=== PATIENT | female | born 1985 | race Two or more races ===

== ENCOUNTER 2016-07-30 14:12 | Emergency (ER) | payer OTHER ==
[~2016-07-30] VITALS: Ht 167.6 cm; Wt 59.0 kg
[~2016-07-30 14:12] MED LIST: BACTRIM DS TAB1 EAC1 ORAL; COLACE100 MG PO; FERROUS SULFAT325 MG ORAL; IBUPROFEN600 MG ORAL; IRON159 MG PO; MACROBID100 MG ORAL; MIDOL220 MG PO; NAPROSYN375 M1 ORAL; PERCOCET 5-3251 EACH PO; PROMETHAZI6.25 MG/1 ORAL; UNOBMED
[2016-07-30] MEDS ORDERED: IBUPROFEN600 MG ORAL (15:03)
[2016-07-30 15:15] VITALS: BP 108/71
--- NOTE | 2016-07-30 16:33 | Emergency Room Report ---
History of Present Illness General Chief Complaint: Lower Extremity Injury Source: Patient Present Illness HPI The patient is a 30-year-old female presenting with left big toe pain which occurred yesterday after the patient dropped a leaf blender onto the foot. The patient describes the pain as a 9/10 sharp sensation and radiates to the ankle. Patient states that she is unable to bear weight on the foot. The patient denies prior injury to the toe. Patient denies any numbness or tingling. The patient has not tried any medications. Allergies: Coded Allergies: AMOXICILLIN (Verified Allergy, Mild, Itching, 08/13/12) Patient History Past Medical History: see triage record Pertinent Family History: none Last Menstrual Period: 06/28/16 Reviewed Nursing Documentation: PMH: Agreed, PSxH: Agreed Nursing Documentation-PMH Past Medical History: No History, Except For Review of Systems All Other Systems: negative except mentioned in HPI Physical Exam Vital Signs Date Time Temp Pulse Resp B/P Pulse Ox O2 Delivery O2 Flow Rate FiO2 07/30/16 14:22 98 20 105/72 98 Room Air Sp02 EP Interpretation: reviewed, normal General Appearance: no apparent distress, alert, GCS 15, non-toxic Head: normocephalic, atraumatic Eyes: bilateral eye PERRL, bilateral eye normal inspection Musculoskeletal: back normal, gait/station normal, normal range of motion, tender - TTP over L 1st IPJ Neurologic: alert, oriented x3, responsive, motor strength/tone normal, sensory intact, normal gait, speech normal Psychiatric: judgement/insight normal, memory normal, mood/affect normal, no suicidal/homicidal ideation Skin: normal turgor, other - echymosis over L first IPJ Lymphatic: no adenopathy Procedures Splinting Splinting : Consent: Verbal Location: L 1st toe Pre-Made Type: tape Pre-Proc Neuro Vasc Exam: normal Post-Proc Neuro Vasc Exam: normal Patient Tolerated: Well Complications: None Medical Decision Making PA Attestation Dr. Bowen is my supervising physician. Patient management was discussed with my supervising physician Diagnostic Impression: Primary Impression: Toe contusion ER Course The patient is a 30-year-old female presenting with left big toe pain Ddx considered include but not limited to sprain/strain, fracture, contusion, subungual hematoma Physical exam: No apparent distress. Left foot: There is ecchymosis and tenderness to palpation over the first IP joint. Full active range of motion. Skin is intact. The nail is unaffected. No subungual hematoma X-ray of the foot is unremarkable The patient is given Motrin for pain Sergei tape was applied to the first and second toes. The patient is given rice instructions and will be discharged home. ER precautions are given Other X-Ray Diagnostic Results Other X-Ray Diagnostic Results : X-Ray Ordered: L foot Date: Jul 30, 2016 EP Interpretation: Yes Findings: no fractures, no dislocation, no soft tissue swelling Number of Views: 3 PA Scribe Text I am acting as scribe for my supervising physician. My supervising physician's interpretation of the L foot xrays are there are no fractures, dislocations or soft tissue swelling. Last Vital Signs Date Time Temp Pulse Resp B/P Pulse Ox O2 Delivery O2 Flow Rate FiO2 07/30/16 15:15 76 20 108/71 98 Room Air Status: improved Disposition: HOME, SELF-CARE Condition: Improved Scripts Ibuprofen* (MOTRIN*) 600 Mg Tablet 600 MG ORAL Q8H Y for For Pain, #30 TAB 0 Refills Prov: GILMER DOBSON 07/30/16 Patient Instructions: Foot Contusion Additional Instructions: I discussed my findings with the patient. All questions and concerns have been answered. Treatment and medication compliance have been addressed. I advised the patient that they need to follow up with PMD in 3-5 days. Return to ED if pain remains or worsens, numbness or tingling occurs, new rash is noticed, fever is noticed, or if needed for any reason. Patient verbalized understanding of discharge instructions. GILMER DOBSON Jul 30, 2016 16:33
--- NOTE | 2016-07-30 17:07 | Diagnostic Imaging Report ---
Indication: PAIN Technique: 3 views left foot Comparison: none Findings: No acute fractures. No dislocations. Joint spaces are preserved. Impression: Negative
== END 2016-07-30 15:21 | disposition home or self-care (01) ==
LOC: EMR 14:55
DX: S90.112A Contusion of left great toe without damage to nail, initial encounter (principal); W20.8XXA Other cause of strike by thrown, projected or falling object, initial encounter; Y92.9 Unspecified place or not applicable; Z88.0 Allergy status to penicillin
CPT/HCPCS: 81025; 99283

== ENCOUNTER 2017-01-12 19:36 | Emergency (ER) | payer OTHER ==
[~2017-01-12] VITALS: Ht 167.6 cm; Wt 54.4 kg
[2017-01-12] MEDS ORDERED: NKM (20:06)
[2017-01-12] MEDS ORDERED: BACTRIM DS TAB1 EAC1 ORAL (20:22)
[2017-01-12] MEDS ORDERED: CLINDAMYCIN HC150 MG ORAL (20:22)
[2017-01-12] MEDS ORDERED: BACTROBAN CR1 APPLIC TOPIC (20:22)
[2017-01-12 20:30] VITALS: BP 95/57
--- NOTE | 2017-01-12 20:59 | Emergency Room Report ---
History of Present Illness General Chief Complaint: Skin Rash/Abscess Source: Patient Present Illness HPI Patient's presents emergency department today complaining of rash on the nose. Patient states that she has a nose pimple it progressively became worse. And she also has a rash on her scalp. She's never had this before she's had for a couple days. She denies any fever nausea vomiting or chills.No other modifying factors. No other associated signs and symptoms. No other complaints were noted. Allergies: Coded Allergies: AMOXICILLIN (Verified Allergy, Mild, Itching, 01/12/17) Patient History Past Medical History: none Past Surgical History: none Pertinent Family History: none Social History: Denies: alcohol use, drug use, smoking Last Menstrual Period: december 2016 Reviewed Nursing Documentation: PMH: Agreed, PSxH: Agreed Nursing Documentation-PM Past Medical History: No History, Except For Review of Systems All Other Systems: negative except mentioned in HPI Physical Exam Vital Signs Date Time Temp Pulse Resp B/P Pulse Ox O2 Delivery O2 Flow Rate FiO2 01/12/17 20:03 98.4 71 16 95/57 98 Room Air Sp02 EP Interpretation: reviewed, normal General Appearance: normal inspection, well appearing, no apparent distress, alert Head: atraumatic, other - scalp small area of cellulitis Eyes: bilateral eye normal inspection ENT: normal ENT inspection, hearing grossly normal, normal voice Neck: normal inspection, full range of motion, supple, no bony tend Respiratory: normal inspection, lungs clear, normal breath sounds, no respiratory distress, no retraction, no wheezing Cardiovascular #1: regular rate, rhythm, no edema Gastrointestinal: normal inspection, normal bowel sounds, non tender, soft, no guarding, no hernia Genitourinary: no CVA tenderness Musculoskeletal: normal inspection, back normal, normal range of motion Neurologic: normal inspection, alert, responsive, speech normal Psychiatric: normal inspection, judgement/insight normal, mood/affect normal Skin: rash - Nose, redness, Pimple Medical Decision Making Diagnostic Impression: Primary Impression: Cellulitis Additional Impression: Acne ER Course Patient presents emergency department today complaining of the spot on the nose. Patient also has evidence of cellulitis of scalp. Differential considerations include abscess, cellulitis, MRSA infection. Given patient's presentation I felt that this likely is a Acne infection and possible MRSA. Patient was given oral antibiotics prescription and topical antibiotics. Recommend close followup.Patient is advised to follow up with primary doctor in 2-3 days and return the emergency room for any worsening symptoms and as needed. Last Vital Signs Date Time Temp Pulse Resp B/P Pulse Ox O2 Delivery O2 Flow Rate FiO2 01/12/17 20:30 98.4 16 95/57 98 Room Air 01/12/17 20:03 71 Status: improved Disposition: HOME, SELF-CARE Condition: Stable Scripts Mupirocin Calcium (Bactroban) 15 Gm Cream..g. 1 APPLIC TOPIC THREE TIMES A DAY for 10 Days, GM Prov: BECCA HEBERT M.D. 01/12/17 Trimethoprim/Sulfamethoxazole 160/800* (BACTRIM DS TABLET*) 1 Each Tablet 1 TAB ORAL Q12H, #14 TAB 0 Refills Prov: BECCA HEBERT M.D. 01/12/17 Clindamycin Hcl* (CLINDAMYCIN HCL*) 150 Mg Capsule 150 MG ORAL FOUR TIMES A DAY for 7 Days, CAP Prov: BECCA HEBERT M.D. 01/12/17 Referrals: [facility] ([facility]P) Patient Instructions: Cellulitis, Acne BECCA HEBERT M.D. Jan 12, 2017 20:59
== END 2017-01-12 20:30 | disposition home or self-care (01) ==
LOC: EMR 20:18
DX: J34.0 Abscess, furuncle and carbuncle of nose (principal); L70.9 Acne, unspecified; Z88.0 Allergy status to penicillin
CPT/HCPCS: 99284

== ENCOUNTER 2017-04-22 17:43 | Emergency (ER) | payer OTHER ==
[~2017-04-22] VITALS: Ht 160 cm; Wt 59.0 kg
[~2017-04-22 17:43] MED LIST changes: +BACTROBAN CR1 APPLIC TOPIC; +CLINDAMYCIN HC150 MG ORAL; +NKM
[2017-04-22] MEDS ORDERED: Methocarbamol 750mg tab ORAL ONE (18:15)
[2017-04-22] MEDS ORDERED: Ketorolac 60mg Inj IM ONE (18:15)
[2017-04-22 18:30] VITALS: BP 123/85
[2017-04-22] MEDS ORDERED: Morphine Sulfate 4mg/ml Inj IM ONE (19:15)
[2017-04-22] MEDS ORDERED: IBUPROFEN600 MG ORAL (19:46)
[2017-04-22] MEDS ORDERED: TRAMADOL HCL50 MG ORAL (19:46)
[2017-04-22 19:59] VITALS: BP 123/85
--- NOTE | 2017-04-23 12:43 | Emergency Room Report ---
History of Present Illness General Chief Complaint: Pain Source: Patient, Medical Record Present Illness HPI The patient is a 31-year-old female presenting for upper back pain and neck pain for the past 3 days. She denies any known reason for the pain and denies any injury or over use. Is described as a 9/10 dull ache and does not radiate. Worse with shoulder movement and neck movement. Better with rest. No radiating pain. She has tried motrin and tylenol. Allergies: Coded Allergies: AMOXICILLIN (Verified Allergy, Mild, Itching, 01/12/17) Patient History Past Medical History: see triage record Pertinent Family History: none Last Menstrual Period: 03/16/17 Reviewed Nursing Documentation: PMH: Agreed, PSxH: Agreed Nursing Documentation-PMH Past Medical History: No History, Except For Review of Systems All Other Systems: negative except mentioned in HPI Physical Exam Vital Signs Date Time Temp Pulse Resp B/P (MAP) Pulse Ox O2 Delivery O2 Flow Rate FiO2 04/22/17 17:55 98.2 65 18 116/74 99 Room Air Sp02 EP Interpretation: reviewed, normal General Appearance: no apparent distress, alert, GCS 15, non-toxic Head: normocephalic, atraumatic Eyes: bilateral eye normal inspection, bilateral eye PERRL ENT: hearing grossly normal, normal pharynx, no angioedema, normal voice, uvula midline Neck: supple, no bony tend, tender lateral - bilat, tender - bilat trapezius Respiratory: chest non-tender, lungs clear, normal breath sounds, speaking full sentences Cardiovascular #1: regular rate, rhythm, no edema Musculoskeletal: back normal, gait/station normal, normal range of motion, non- tender Neurologic: alert, oriented x3, responsive, motor strength/tone normal, sensory intact, speech normal Psychiatric: judgement/insight normal, memory normal, mood/affect normal, no suicidal/homicidal ideation Skin: normal color, no rash, warm/dry, well hydrated Medical Decision Making PA Attestation Dr. Bowen is my supervising physician. Patient management was discussed with my supervising physician Diagnostic Impression: Primary Impression: Muscle strain ER Course The patient is a 31-year-old female presenting for upper back pain and neck pain for the past 3 days. Differential diagnoses considered but not limited to: Cervical strain, disc herniation, fracture, muscle spasm, among others PE: Vitals WNL. NAD Neck is soft and supple. TTP over bilat cervical paraspinal muscles and bilat trapezii. Full AROM of neck and shoulders. The patient is given pain medication in the emergency department and feels significantly better. Pain has decreased She'll be discharged home with prescription for pain medication and needs to follow up with her primary doctor Last Vital Signs Date Time Temp Pulse Resp B/P (MAP) Pulse Ox O2 Delivery O2 Flow Rate FiO2 04/22/17 19:59 98.3 78 16 123/85 100 Room Air Status: improved Disposition: HOME, SELF-CARE Condition: Improved Scripts Ibuprofen* (MOTRIN*) 600 Mg Tablet 600 MG ORAL Q8H Y for For Pain, #30 TAB 0 Refills Prov: GILMER DOBSON 04/22/17 Tramadol Hcl* (ULTRAM*) 50 Mg Tablet 50 MG ORAL Q6H Y for For Pain, #10 TAB 0 Refills Prov: GILMER DOBSON 04/22/17 Patient Instructions: Muscle Strain Additional Instructions: I discussed my findings with the patient. All questions and concerns have been answered. Treatment and medication compliance have been addressed. I advised the patient that they need to follow up with PMD in 3-5 days. Return to ED if pain remains or worsens, numbness or tingling occurs, new rash is noticed, fever is noticed, or if needed for any reason. Patient verbalized understanding of discharge instructions. GILMER DOBSON Apr 23, 2017 12:43
== END 2017-04-22 19:59 | disposition home or self-care (01) ==
LOC: EMR 18:58
DX: S29.012A Strain of muscle and tendon of back wall of thorax, initial encounter (principal); X58.XXXA Exposure to other specified factors, initial encounter; Y92.89 Other specified places as the place of occurrence of the external cause; Z88.0 Allergy status to penicillin
CPT/HCPCS: 96372; 99284; J2270

== ENCOUNTER 2017-06-03 14:42 | Emergency (ER) | payer OTHER ==
[~2017-06-03] VITALS: Ht 165.1 cm; Wt 57.2 kg
[~2017-06-03 14:42] MED LIST changes: +TRAMADOL HCL50 MG ORAL
[2017-06-03] MEDS ORDERED: TIVICAY50 MG ORAL (15:32)
[2017-06-03] MEDS ORDERED: TRUVADA 200 MG1 EAC1 ORAL (15:32)
--- NOTE | 2017-06-03 15:33 | Emergency Room Report ---
History of Present Illness General Chief Complaint: General Complaint Source: Patient Present Illness HPI 31 y/o female c/o needle stick to left pinky finger at 12:15pm today. 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 States her finger did have blood coming from it. Patient provided initial wound cleaning at office and is here for post exposure prophylaxis. Patient denies hx of HIV or Hepatitis. Denies any other complications. Denies Hep B vaccination. Allergies: Coded Allergies: AMOXICILLIN (Verified Allergy, Unknown, 06/03/17) Patient History Past Medical History: see triage record Past Surgical History: none Pertinent Family History: none Reviewed Nursing Documentation: PMH: Agreed, PSxH: Agreed Nursing Documentation-PMH Past Medical History: No Stated History Hx Hypertension: No - ANEMIA Review of Systems All Other Systems: negative except mentioned in HPI Physical Exam Vital Signs Date Time Temp Pulse Resp B/P (MAP) Pulse Ox O2 Delivery O2 Flow Rate FiO2 06/03/17 14:46 97.7 72 20 99/71 97 Room Air Sp02 EP Interpretation: reviewed, normal General Appearance: no apparent distress, alert, GCS 15, non-toxic Head: normocephalic, atraumatic Eyes: bilateral eye normal inspection, bilateral eye PERRL ENT: normal pharynx, no angioedema, normal voice Respiratory: chest non-tender, lungs clear, normal breath sounds, speaking full sentences Cardiovascular #1: regular rate, rhythm, no edema Musculoskeletal: digits/nails normal, gait/station normal, normal range of motion Neurologic: alert, oriented x3, responsive, motor strength/tone normal, sensory intact, speech normal Psychiatric: judgement/insight normal, memory normal, no suicidal/homicidal ideation, anxious Skin: normal color, no rash, warm/dry, well hydrated, laceration Medical Decision Making PA Attestation Dr. Bowen my supervising physician with whom patient management has been discussed with. Diagnostic Impression: Primary Impression: Needle stick injury with contaminated needle Qualified Codes: W46.1XXA - Contact with contaminated hypodermic needle, initial encounter Additional Impression: HIV exposure from body fluids ER Course Pt. presents to the ED c/o needle stick Ddx considered but are not limited to puncture wound, laceration, HIV, Hepatitis Vital signs: are WNL, pt. is afebrile H&PE are most consistent with Needle stick injury with possible exposure to blood born pathogen ORDERS: HIV, Hepatitis Panel ED INTERVENTIONS: none required at this time. DISCHARGE: At this time pt. is stable for d/c to home. Will provide printed patient care instructions, and any necessary prescriptions. Care plan and follow up instructions have been discussed with the patient prior to discharge. Last Vital Signs Date Time Temp Pulse Resp B/P (MAP) Pulse Ox O2 Delivery O2 Flow Rate FiO2 06/03/17 14:46 97.7 72 20 99/71 97 Room Air Disposition: HOME, SELF-CARE Condition: Stable Scripts Dolutegravir Sodium (Tivicay) 50 Mg Tablet 50 MG ORAL DAILY, #30 TAB Prov: JESUS MANUEL SCHERER.A. 06/03/17 Emtricitabine/Tenofovir 200-300MG* (TRUVADA 200-300MG*) 1 Each Tablet 1 TAB ORAL DAILY for 30 Days, #30 TAB Prov: JESUS MANUEL SCHERER P.A. 06/03/17 Patient Instructions: HIV Possible Exposure, Child, Needle Stick Injury Additional Instructions: Patient is advised to followup with his worker's comp to monitoring of possible HIV and hepatitis exposure. Patient needs to follow up regarding titers within 3 days for Heptitis B and if positive, it is recommended she take Hepatitis B immune globulin no later than 7 days from day of exposure. Patient is advised to take medication as directed. Patient is advised to have periodic testing over the next 3-6 months. Keep wound clean and dry. Avoid sun exposure to minimize scarring. Patient advised that they can take a shower or bath, but be sure to pat the area dry with a towel afterward. Patient should come back sooner if they experience any red areas that get bigger, more swollen, have pus draining from wound, or if the site becomes more painful. JESUS MANUEL SCHERER Jun 03, 2017 15:33
[2017-06-03 16:00] VITALS: BP 110/75
== END 2017-06-03 17:30 | disposition home or self-care (01) ==
LOC: EMR 17:08 → MERGE 17:08 → EMR 17:30
DX: S61.217A Laceration without foreign body of left little finger without damage to nail, initial encounter (principal); W46.1XXA Contact with contaminated hypodermic needle, initial encounter; Y92.531 Health care provider office as the place of occurrence of the external cause; Y99.0 Civilian activity done for income or pay; Z88.0 Allergy status to penicillin; Z20.6 Contact with and (suspected) exposure to human immunodeficiency virus [HIV]
CPT/HCPCS: 86703; 86705; 86709; 86803; 87340; 99283

== ENCOUNTER 2017-07-06 08:55 | Emergency (ER) | payer OTHER ==
[~2017-07-06] VITALS: Ht 154.9 cm; Wt 59.0 kg
[~2017-07-06 08:55] MED LIST changes: +TIVICAY50 MG ORAL; +TRUVADA 200 MG1 EAC1 ORAL
[2017-07-06] MEDS ORDERED: IRON159 MG PO (09:05)
--- NOTE | 2017-07-06 09:11 | Emergency Room Report ---
History of Present Illness General Chief Complaint: Chest Pain Source: Patient Present Illness HPI Patient present with complaints of pain to the right mid lower chest wall region She reports the pain goes towards her back Pain started this morning Reports that last night she feels that she went to bed without much discomfort Denies any nausea vomiting She has a mild cough also nasal congestion Patient reports mild headache diffusely Denies any visual change Denies any diarrhea Denies any neck pain or photophobia denies any trauma Patient takes iron pills for her anemia Allergies: Coded Allergies: AMOXICILLIN (Verified Allergy, Mild, Itching, 01/12/17) Patient History Past Medical History: see triage record Pertinent Family History: none Last Menstrual Period: 06/28/16. Now: No Reviewed Nursing Documentation: PMH: Agreed, PSxH: Agreed Nursing Documentation-PMH Past Medical History: No History, Except For Review of Systems All Other Systems: negative except mentioned in HPI Physical Exam Vital Signs Date Time Temp Pulse Resp B/P (MAP) Pulse Ox O2 Delivery O2 Flow Rate FiO2 07/06/17 09:02 97.9 86 22 111/75 100 Room Air Sp02 EP Interpretation: reviewed, normal General Appearance: mild distress - appears uncomfortable Head: normocephalic, atraumatic Eyes: bilateral eye PERRL, bilateral eye EOMI ENT: hearing grossly normal, normal pharynx, TMs + canals normal, uvula midline Neck: full range of motion, supple, no meningismus, no bony tend Respiratory: lungs clear, normal breath sounds, no rhonchi, no respiratory distress, no retraction, no accessory muscle use Cardiovascular #1: normal peripheral pulses, regular rate, rhythm, no edema, no gallop, no JVD, no murmur Gastrointestinal: normal bowel sounds, non tender, soft, no mass, no organomegaly, non-distended, no guarding, no hernia, no pulsatile mass, no rebound Genitourinary: no CVA tenderness Musculoskeletal: normal inspection Neurologic: oriented x3, responsive, way inspector III-XII nml as tested, motor strength/ tone normal, sensory intact Psychiatric: mood/affect normal Skin: no rash, warm/dry, palpation normal, pallor Lymphatic: normal inspection, no adenopathy Medical Decision Making Diagnostic Impression: Primary Impression: Chest pain Additional Impression: Pleurisy ER Course Patient is a fairly complex patient with multiple differential to consideration including but not limited to cardiac cardiopulmonary and vascular emergencies Given the patient's pleuritic component D-dimer was also obtained Low risk for PE X-ray is normal labs are appropriate on reevaluation patient is improved There is likely some component of URI Patient otherwise stable for initial conservative outpatient trial Labs Test 07/06/17 09:20 07/06/17 09:30 Urine HCG, Qualitative Negative White Blood Count 7.0 K/UL (4.8-10.8) Red Blood Count 4.03 M/UL (4.20-5.40) Hemoglobin 12.6 G/DL (12.0-16.0) Hematocrit 38.1 % (37.0-47.0) Mean Corpuscular Volume 95 FL (80-99) Mean Corpuscular Hemoglobin 31.4 PG (27.0-31.0) Mean Corpuscular Hemoglobin Concent 33.2 G/DL (32.0-36.0) Red Cell Distribution Width 11.3 % (11.6-14.8) Platelet Count 356 K/UL (150-450) Mean Platelet Volume 5.0 FL (6.5-10.1) Neutrophils (%) (Auto) 41.8 % (45.0-75.0) Lymphocytes (%) (Auto) 46.8 % (20.0-45.0) Monocytes (%) (Auto) 8.1 % (1.0-10.0) Eosinophils (%) (Auto) 1.4 % (0.0-3.0) Basophils (%) (Auto) 1.9 % (0.0-2.0) D-Dimer < 0.19 mg/L FEU Sodium Level 139 MMOL/L (136-145) Potassium Level 3.5 MMOL/L (3.5-5.1) Chloride Level 105 MMOL/L (98-107) Carbon Dioxide Level 25 MMOL/L (21-32) Anion Gap 9 mmol/L (5-15) Blood Urea Nitrogen 11 mg/dL (7-18) Creatinine 0.9 MG/DL (0.55-1.30) Estimat Glomerular Filtration Rate > 60 mL/min (>60) Glucose Level 70 MG/DL (74-106) Calcium Level 9.4 MG/DL (8.5-10.1) Total Bilirubin 0.5 MG/DL (0.2-1.0) Aspartate Amino Transf (AST/SGOT) 22 U/L (15-37) Alanine Aminotransferase (ALT/SGPT) 22 U/L (12-78) Alkaline Phosphatase 60 U/L (46-116) Total Creatine Kinase 73 U/L (26-308) Creatine Kinase MB 0.9 NG/ML (0.0-3.6) Creatine Kinase MB Relative Index 1.2 Total Protein 7.5 G/DL (6.4-8.2) Albumin 3.8 G/DL (3.4-5.0) Globulin 3.7 g/dL Albumin/Globulin Ratio 1.0 (1.0-2.7) Lipase 301 U/L (73-393) EKG Diagnostic Results Rate: normal Rhythm: NSR ST Segments: no acute changes Rhythm Strip Diag. Results EP Interpretation: yes Rate: 68 Rhythm: NSR, no PVC's, no ectopy Chest X-Ray Diagnostic Results Chest X-Ray Diagnostic Results : Chest X-Ray Ordered: Yes # of Views/Limited/Complete: 1 View Indication: Chest Pain EP Interpretation: Yes Interpretation: no consolidation, no effusion, no pneumothorax Impression: No acute disease Electronically Signed by: Nisha Ewing DO Last Vital Signs Date Time Temp Pulse Resp B/P (MAP) Pulse Ox O2 Delivery O2 Flow Rate FiO2 07/06/17 09:02 97.9 86 22 111/75 100 Room Air Status: improved Disposition: HOME, SELF-CARE Condition: Improved Scripts Albuterol Sulfate* (ALBUTEROL SULFATE MDI*) 8.5 Gm Hfa.aer.ad 2 PUFF INH Q4H Y for cough/wheezing, #1 EA 0 Refills Prov: NISHA EWING D.O. 07/06/17 Additional Instructions: Patient is provided with the discharge instructions notified to follow up with primary doctor in the next 2-3 days otherwise return to the er with any worsening symptoms. Please note that this report is being documented using [employer] technology. This can lead to erroneous entry secondary to incorrect interpretation by the dictating instrument. NISHA EWING D.O. Jul 06, 2017 09:11
[2017-07-06] MEDS ORDERED: Ketorolac 30mg Inj IV ONE (09:15)
[2017-07-06 09:47] LABS: BASOPHILS % (AUTO) 1.9 % (0.0-2.0); EOSINOPHILS % (AUTO) 1.4 % (0.0-3.0); HEMATOCRIT 38.1 % (37.0-47.0); HEMOGLOBIN 12.6 G/DL (12.0-16.0); LYMPHOCYTES % (AUTO) 46.8 % (20.0-45.0); MEAN CORPUSCULAR VOLUME 95 FL (80-99); MONOCYTES % (AUTO) 8.1 % (1.0-10.0); NEUTROPHILS % (AUTO) 41.8 % (45.0-75.0); PLATELET COUNT 356 K/UL (150-450); RED BLOOD COUNT 4.03 M/UL (4.20-5.40); RED CELL DISTRIBUTION WIDTH 11.3 % (11.6-14.8)
[2017-07-06 10:00] LABS: ANION GAP 9 mmol/L (5-15); BLOOD UREA NITROGEN 11 mg/dL (7-18); CALCIUM 9.4 MG/DL (8.5-10.1); CARBON DIOXIDE 25 MMOL/L (21-32); CHLORIDE 105 MMOL/L (98-107); CREATININE 0.9 MG/DL (0.55-1.30); POTASSIUM 3.5 MMOL/L (3.5-5.1); SODIUM 139 MMOL/L (136-145)
[2017-07-06 10:13] LABS: ALANINE AMINOTRANSFERASE 22 U/L (12-78); ALBUMIN 3.8 G/DL (3.4-5.0); ALKALINE PHOSPHATASE 60 U/L (46-116); ASPARTATE AMINO TRANSFERASE 22 U/L (15-37); BILIRUBIN,TOTAL 0.5 MG/DL (0.2-1.0); CKMB 0.9 NG/ML (0.0-3.6); CREATINE KINASE 73 U/L (26-308)
[2017-07-06] MEDS ORDERED: ALBUTEROL SULF8.5 GM INH (10:44)
[2017-07-06 11:26] VITALS: BP 107/70
--- NOTE | 2017-07-06 12:54 | Diagnostic Imaging Report ---
Indication: Shortness of breath Technique: One view of the chest Comparison: 08/13/2012 Findings: Lungs and pleural spaces are clear. Heart size is normal . No significant interim change Impression: No acute process
--- NOTE | 2017-07-14 18:39 | Cardiology Report ---
APPROVED REPORT EKG Measurement Heart [id number] Normal sinus rhythm Normal ECG
== END 2017-07-06 11:27 | disposition home or self-care (01) ==
LOC: EMR 09:29
DX: R09.1 Pleurisy (principal); Z88.1 Allergy status to other antibiotic agents
CPT/HCPCS: 36415; 71045; 80053; 81025; 82550; 82553; 83690; 85025; 85379; 93005; 96374; 99284; J1885

== ENCOUNTER 2017-08-11 11:09 | Emergency (ER) | payer OTHER ==
[~2017-08-11] VITALS: Ht 154.9 cm; Wt 59.0 kg
[~2017-08-11 11:09] MED LIST changes: +ALBUTEROL SULF8.5 GM INH
[2017-08-11] MEDS ORDERED: NASAL SPRAY30 M2 NS (12:20)
[2017-08-11] MEDS ORDERED: TESSALON PERLE100 MG ORAL (12:20)
[2017-08-11] MEDS ORDERED: IBUPROFEN600 MG ORAL (12:20)
[2017-08-11 12:27] VITALS: BP 98/69
--- NOTE | 2017-08-11 13:54 | Diagnostic Imaging Report ---
Indication: Cough Technique: One view of the chest Comparison: 07/06/2017 Findings: Lungs and pleural spaces are clear. Heart size is normal . No significant change Impression: No acute process
--- NOTE | 2017-08-11 14:16 | Emergency Room Report ---
History of Present Illness General Chief Complaint: Flu Like Symptoms Source: Patient Present Illness HPI 31 F presents with fever, chills, cough, runny nose for 7 days. Cough is productive with clear phlegm. Pt still eating/drinking well. +sick contacts. No recent travel. No SOB, cp, abdominal pain, n/v/d. Allergies: Coded Allergies: AMOXICILLIN (Verified Allergy, Mild, Itching, 01/12/17) Patient History Past Medical History: see triage record Past Surgical History: none Pertinent Family History: none Last Menstrual Period: Current Reviewed Nursing Documentation: PMH: Agreed, PSxH: Agreed Review of Systems All Other Systems: negative except mentioned in HPI Physical Exam Vital Signs Date Time Temp Pulse Resp B/P (MAP) Pulse Ox O2 Delivery O2 Flow Rate FiO2 08/11/17 11:20 98.6 65 18 98/69 98 Room Air 98.6 Sp02 EP Interpretation: reviewed, normal General Appearance: alert, GCS 15, non-toxic, mild distress Head: normocephalic, atraumatic Eyes: bilateral eye normal inspection, bilateral eye PERRL, bilateral eye EOMI ENT: normal ENT inspection, normal pharynx, normal voice, moist mucus membranes Neck: normal inspection, full range of motion, supple Respiratory: normal inspection, lungs clear, normal breath sounds, no respiratory distress, no retraction, no wheezing, speaking full sentences, chest symmetrical Cardiovascular #1: normal inspection, regular rate, rhythm, no edema, normal capillary refill Cardiovascular #2: 2+ radial (R), 2+ radial (L) Gastrointestinal: normal inspection, non tender, soft, non-distended, no guarding Musculoskeletal: normal inspection, back normal, normal range of motion, non- tender Neurologic: normal inspection, alert, oriented x3, responsive, motor strength/ tone normal, sensory intact, normal gait, speech normal Psychiatric: normal inspection, judgement/insight normal, memory normal Skin: normal inspection, normal color, no rash, warm/dry, well hydrated, normal turgor Medical Decision Making Diagnostic Impression: Primary Impression: Viral upper respiratory illness ER Course 31 F p/w fever, chills, runny nose, cough Appears non- toxic, well hydrated, tolerating PO DDX: Viral URI / pneumonia Plan: None in Emergency Room ER course: Pt stable in ED, remains nontoxic appearing, no sob. Tolerating PO Disposition: Patient discharged to home with Avni Caal Patient instructed to follow up with PMD in 1 week. Also instructed to take motrin/tylenol at home. Very strict return precautions discussed with patient such as intractable fever and chills, unable to eat or drink, severe chest pain or shortness of breath. Patient verbalized understanding and agrees with plan. Please note that this Emergency Department Report was dictated using [employer] and hearing director technology software, occasionally this can lead to erroneous entry secondary to interpretation by the dictation equipment Chest X-ray CXR: Ordered: Yes 1 view Indication: Cough EP interpretation: Yes Interpretation: No consolidation, no effusion, no PTX, no acute cardiopulmonary disease Impression: No acute disease Electronically signed by Francisco Maldonado MD Last Vital Signs Date Time Temp Pulse Resp B/P (MAP) Pulse Ox O2 Delivery O2 Flow Rate FiO2 08/11/17 12:27 209.5 18 98/69 98 Room Air 209.5 08/11/17 11:20 65 Disposition: HOME, SELF-CARE Condition: Improved Scripts Ibuprofen* (MOTRIN*) 600 Mg Tablet 600 MG ORAL Q8H Y for For Pain, #30 TAB 0 Refills Prov: Francisco Maldonado M.D. 08/11/17 Oxymetazoline Hcl (NASAL SPRAY) 30 Ml [place] 30 ML NS BID, #1 SPRAY Prov: Francisco Maldonado M.D. 08/11/17 Benzonatate* (AVNI GOMEZ*) 100 Mg Capsule 100 MG ORAL THREE TIMES A DAY for 7 Days, #21 PERLE Prov: Francisco Maldonado M.D. 08/11/17 Patient Instructions: Viral Respiratory Infection, [id number] Francisco Maldonado M.D. Aug 11, 2017 14:16
== END 2017-08-11 12:28 | disposition home or self-care (01) ==
LOC: EMR 11:35
DX: J06.9 Acute upper respiratory infection, unspecified (principal); B34.9 Viral infection, unspecified; Z88.0 Allergy status to penicillin
CPT/HCPCS: 71045; 99283

== ENCOUNTER 2017-08-17 15:19 | Emergency (ER) | payer OTHER ==
[~2017-08-17] VITALS: Ht 154.9 cm; Wt 54.4 kg
[~2017-08-17 15:19] MED LIST changes: +NASAL SPRAY30 M2 NS; +TESSALON PERLE100 MG ORAL
--- NOTE | 2017-08-17 15:47 | Emergency Room Report ---
History of Present Illness General Chief Complaint: Abdominal Pain Source: Patient, Medical Record Present Illness HPI 31-year-old female with no sig pmhx p/w left sided abdominal pain and dysuria for one day. Patient states pain started gradually, localized to left side, non radiating, crampy in nature, intermittent. No relieving or exacerbating factors. Patient states that she is currently on her menstrual period Pt reports n/v, 1 episodes of nbnb vomiting last night, no diarrhea or constipation Denies fever, chills. No hx of abdominal surgeries. No hx of endoscopies/colonoscopies. Allergies: Coded Allergies: AMOXICILLIN (Verified Allergy, Mild, Itching, 01/12/17) Patient History Past Medical History: see triage record Past Surgical History: none Pertinent Family History: none Last Menstrual Period: 08/16/17 Reviewed Nursing Documentation: PMH: Agreed, PSxH: Agreed Nursing Documentation-PMH Past Medical History: No History, Except For Review of Systems All Other Systems: negative except mentioned in HPI Physical Exam Vital Signs Date Time Temp Pulse Resp B/P (MAP) Pulse Ox O2 Delivery O2 Flow Rate FiO2 08/17/17 15:23 99.5 101 18 91/61 100 Room Air 99.5 Sp02 EP Interpretation: reviewed, normal General Appearance: alert, GCS 15, non-toxic, mild distress Head: normocephalic, atraumatic Eyes: bilateral eye normal inspection, bilateral eye PERRL, bilateral eye EOMI ENT: normal ENT inspection, normal pharynx, normal voice, moist mucus membranes Neck: normal inspection, full range of motion, supple Respiratory: normal inspection, lungs clear, normal breath sounds, no respiratory distress, no retraction, no wheezing, speaking full sentences, chest symmetrical Cardiovascular #1: normal inspection, regular rate, rhythm, no edema, normal capillary refill Cardiovascular #2: 2+ radial (R), 2+ radial (L) Gastrointestinal: normal bowel sounds, non tender, no guarding, no rebound, other - nontender abdomen even to deep palpation Musculoskeletal: normal inspection, back normal, normal range of motion, non- tender Neurologic: normal inspection, alert, oriented x3, responsive, motor strength/ tone normal, sensory intact, normal gait, speech normal Psychiatric: normal inspection, judgement/insight normal, memory normal Skin: normal inspection, normal color, no rash, warm/dry, well hydrated, normal turgor Medical Decision Making Diagnostic Impression: Primary Impression: UTI (lower urinary tract infection) ER Course 31 yo F with dysuria/abd pain Differential Diagnosis: Gastritis, gastroenteritis, cholecystitis, appendicitis, diverticulitis, UTI/ pyelo At this time abdomen is soft nontender, not likely to have acute intra- abdominal surgical pathology, will hold CT for now. Plan: Basic labs, ua ucg ER course: Patient has remained stable during ED stay +UTI, given fluids and pyridium. will dc with macrobid Disposition: Patient is to be discharged to home. Prescriptions given are CIPRO Patient is instructed to follow up with their primary care doctor within 5 days. Strict return precautions discussed with patient such as fever, chills, worsening/severe abdominal pain, nausea, vomiting, black or bloody stools, which may indicate severe illness. Patient verbalizes understanding and agrees with plan. Please note that this Emergency Department Report was dictated using [employer] document preparer technology software, occasionally this can lead to erroneous entry secondary to interpretation by the dictation equipment Rhythm Strip EP Interpretation: Yes Rate: 90 Rhythm: NSR, no PVCs, no ectopy Laboratory Tests Test 08/17/17 15:54 08/17/17 16:13 White Blood Count 20.2 K/UL (4.8-10.8) H Red Blood Count 4.33 M/UL (4.20-5.40) Hemoglobin 14.4 G/DL (12.0-16.0) Hematocrit 39.9 % (37.0-47.0) Mean Corpuscular Volume 92 FL (80-99) Mean Corpuscular Hemoglobin 33.3 PG (27.0-31.0) H Mean Corpuscular Hemoglobin Concent 36.0 G/DL (32.0-36.0) Red Cell Distribution Width 11.1 % (11.6-14.8) L Platelet Count 358 K/UL (150-450) Mean Platelet Volume 5.7 FL (6.5-10.1) L Neutrophils (%) (Auto) % (45.0-75.0) Lymphocytes (%) (Auto) % (20.0-45.0) Monocytes (%) (Auto) % (1.0-10.0) Eosinophils (%) (Auto) % (0.0-3.0) Basophils (%) (Auto) % (0.0-2.0) Neutrophils % (Manual) Pending Lymphocytes % (Manual) Pending Platelet Estimate Pending Platelet Morphology Pending Sodium Level 137 MMOL/L (136-145) Potassium Level 3.4 MMOL/L (3.5-5.1) L Chloride Level 101 MMOL/L (98-107) Carbon Dioxide Level 23 MMOL/L (21-32) Anion Gap 14 mmol/L (5-15) Blood Urea Nitrogen 16 mg/dL (7-18) Creatinine 1.1 MG/DL (0.55-1.30) Estimate Glomerular Filtration Rate 58.0 mL/min (>60) Glucose Level 100 MG/DL (74-106) Calcium Level 9.7 MG/DL (8.5-10.1) Total Bilirubin 0.7 MG/DL (0.2-1.0) Aspartate Amino Transferase (AST) 24 U/L (15-37) Alanine Aminotransferase (ALT) 25 U/L (12-78) Alkaline Phosphatase 74 U/L (46-116) Total Protein 8.4 G/DL (6.4-8.2) H Albumin 4.3 G/DL (3.4-5.0) Globulin 4.1 g/dL Albumin/Globulin Ratio 1.0 (1.0-2.7) Lipase 127 U/L (73-393) Urine Color Yellow Urine Appearance Clear Urine pH 5 (4.5-8.0) Urine Specific [place] 1.015 (1.005-1.035) Urine Protein Negative (NEGATIVE) Urine Glucose (UA) Negative (NEGATIVE) Urine Ketones Negative (NEGATIVE) Urine Occult Blood 5+ (NEGATIVE) H Urine Nitrite Negative (NEGATIVE) Urine Bilirubin Negative (NEGATIVE) Urine Urobilinogen Normal MG/DL (0.0-1.0) Urine Leukocyte Esterase 3+ (NEGATIVE) H Urine RBC 15-20 /HPF (0 - 2) H Urine WBC 10-15 /HPF (0 - 2) H Urine Squamous Epithelial Cells Few /LPF (NONE/OCC) Urine Bacteria Moderate /HPF (NONE) H Urine HCG, Qualitative Negative Last Vital Signs Date Time Temp Pulse Resp B/P (MAP) Pulse Ox O2 Delivery O2 Flow Rate FiO2 08/17/17 15:23 99.5 101 18 91/61 100 Room Air 99.5 Disposition: HOME, SELF-CARE Condition: Improved Scripts Ciprofloxacin/Ciprofloxa Hcl (CIPROFLOXACIN ER 500 MG TABLET) 500 Mg Tbmp.24hr 500 MG PO Q12HR for 7 Days, #14 TAB 0 Refills Prov: Francisco Maldonado M.D. 08/17/17 Francisco Maldonado M.D. Aug 17, 2017 15:47
[2017-08-17 16:22] LABS: HEMATOCRIT 39.9 % (37.0-47.0); HEMOGLOBIN 14.4 G/DL (12.0-16.0); MEAN CORPUSCULAR VOLUME 92 FL (80-99); PLATELET COUNT 358 K/UL (150-450); RED BLOOD COUNT 4.33 M/UL (4.20-5.40); RED CELL DISTRIBUTION WIDTH 11.1 % (11.6-14.8); WHITE BLOOD COUNT 20.2 K/UL (4.8-10.8)
[2017-08-17 16:24] LABS: ANION GAP 14 mmol/L (5-15); BLOOD UREA NITROGEN 16 mg/dL (7-18); CALCIUM 9.7 MG/DL (8.5-10.1); CARBON DIOXIDE 23 MMOL/L (21-32); CHLORIDE 101 MMOL/L (98-107); CREATININE 1.1 MG/DL (0.55-1.30); POTASSIUM 3.4 MMOL/L (3.5-5.1); SODIUM 137 MMOL/L (136-145)
[2017-08-17 16:24] LABS: APPEARANCE,URINE CLEAR; BILIRUBIN, URINE NEGATIVE (NEGATIVE); GLUCOSE, URINE (UA) NEGATIVE (NEGATIVE); KETONES,URINE NEGATIVE (NEGATIVE); LEUKOCYTE ESTERASE ,URINE 3+ (NEGATIVE); NITRITE,URINE NEGATIVE (NEGATIVE); PH,URINE 5 (4.5-8.0); PROTEIN,URINE NEGATIVE (NEGATIVE); UROBILINOGEN,URINE NORMAL MG/DL (0.0-1.0)
[2017-08-17 16:27] LABS: COLOR,URINE YELLOW
[2017-08-17 16:29] LABS: ALANINE AMINOTRANSFERASE 25 U/L (12-78); ALBUMIN 4.3 G/DL (3.4-5.0); ALKALINE PHOSPHATASE 74 U/L (46-116); ASPARTATE AMINO TRANSFERASE 24 U/L (15-37); BILIRUBIN,TOTAL 0.7 MG/DL (0.2-1.0)
[2017-08-17] MEDS ORDERED: NITROFURANTOIN100 M2 ORAL (17:03)
[2017-08-17] MEDS ORDERED: Ketorolac 30mg Inj IV ONE (17:15)
[2017-08-17] MEDS ORDERED: Phenazopyridine 200mg tab ORAL ONE (17:15)
[2017-08-17] MEDS ORDERED: CIPROFLOXACIN500 MG PO (17:18)
[2017-08-17 17:20] VITALS: BP 113/77
[2017-08-17 17:21] VITALS: BP 113/77
== END 2017-08-17 17:30 | disposition home or self-care (01) ==
LOC: EMR 17:00
DX: N39.0 Urinary tract infection, site not specified (principal); Z88.1 Allergy status to other antibiotic agents
CPT/HCPCS: 36415; 80053; 81003; 81025; 82962; 83690; 85007; 85025; 87086; 87181; 96361; 96374; 99284; J1885

== ENCOUNTER 2017-12-05 12:26 | Emergency (ER) | payer OTHER ==
[~2017-12-05] VITALS: Ht 165.1 cm; Wt 56.7 kg
[~2017-12-05 12:26] MED LIST changes: +CIPROFLOXACIN500 MG PO; +NITROFURANTOIN100 M2 ORAL
--- NOTE | 2017-12-05 12:40 | Emergency Room Report ---
History of Present Illness General Chief Complaint: Pain Source: Patient, Medical Record Present Illness HPI pt is a 32 y.o. F with sig hx of anxiety, here c/o 1 wk of aching pain in upper back radiating to both arms, lower back and both lateral legs. pt mentions the pain started at rest, no injury no fall, rating the pain 10/10, took tylenol with no imrovement. pt mentions this AM she woke up with worse pain in her back , and tingling down both arms and legs. denies cp, sob, palpitation, abd pain, n /v, drug use. mentions she has been very stressed out lately, denies SI, HI. Allergies: Coded Allergies: AMOXICILLIN (Verified Allergy, Mild, Itching, 01/12/17) Patient History Past Medical History: see triage record Past Surgical History: none Pertinent Family History: none Last Menstrual Period: 11/13/2017 Now: No : 5 Para: 0 Reviewed Nursing Documentation: PMH: Agreed; PSxH: Agreed Review of Systems All Other Systems: negative except mentioned in HPI Physical Exam Vital Signs Date Time Temp Pulse Resp B/P (MAP) Pulse Ox O2 Delivery O2 Flow Rate FiO2 12/05/17 12:30 98.1 92 15 112/82 98 Room Air 98.1 Sp02 EP Interpretation: reviewed General Appearance: normal inspection, well appearing, no apparent distress, GCS 15, non-toxic Head: normocephalic, atraumatic Eyes: bilateral eye normal inspection, bilateral eye PERRL ENT: normal ENT inspection, hearing grossly normal, normal pharynx Neck: normal inspection, full range of motion, supple Respiratory: normal inspection, chest non-tender, lungs clear, normal breath sounds, no rhonchi, no respiratory distress, no retraction, no accessory muscle use Cardiovascular #1: normal inspection, normal peripheral pulses, regular rate, rhythm, no edema, no gallop, no JVD, no murmur, no rub Cardiovascular #2: 2+ radial (R), 2+ radial (L) Gastrointestinal: normal inspection, normal bowel sounds, non tender, soft, no mass, no organomegaly Rectal: deferred Genitourinary: deferred Musculoskeletal: normal inspection, back normal, digits/nails normal, gait/ station normal, normal range of motion, non-tender, no calf tenderness, other - pt elicits pain in upper back with raising both arms but ROM intact Neurologic: normal inspection, alert, oriented x3, responsive, coffee machine technician III-XII nml as tested Psychiatric: normal inspection, judgement/insight normal, memory normal, no suicidal/homicidal ideation, anxious - pt appears anxious but not diaphoretic, vitals normal Skin: normal inspection, normal color, no rash, warm/dry, palpation normal Lymphatic: normal inspection, no adenopathy Medical Decision Making PA Attestation all dx, tx, orders were reviewed by my supervising physician Dr. Zepeda Reaction to Intervention: Improved Diagnostic Impression: Primary Impression: Tension headache Additional Impression: Muscle spasm of back ER Course pt is a 32 y.o. F with sig hx of anxiety, here c/o 1 wk of aching pain in upper back radiating to both arms, lower back and both lateral legs. pt mentions the pain started at rest, no injury no fall, rating the pain 10/10, took tylenol with no imrovement. pt mentions this AM she woke up with worse pain in her back , and tingling down both arms and legs. denies cp, sob, palpitation, abd pain, n /v, drug use. mentions she has been very stressed out lately, denies SI, HI. Ddx considered but are not limited to tension type headache and muscle spasm, preferred chest pain, gastric ulcer Vital signs: are WNL, pt. is afebrile H&PE are most consistent with tension type FREEDMAN and muscle spasm ORDERS: Naproxen 500mg bid x10d, rest, ICE/HEAT, f/u pcp and mgmt of anxiety ED INTERVENTIONS: None required at this time. DISCHARGE: At this time pt. is stable for d/c to home. Will provide printed patient care instructions, and any necessary prescriptions. Care plan and follow up instructions have been discussed with the patient prior to discharge. urine test: neg Lab Results Impression negative Last Vital Signs Date Time Temp Pulse Resp B/P (MAP) Pulse Ox O2 Delivery O2 Flow Rate FiO2 12/05/17 12:30 98.1 92 15 112/82 98 Room Air 98.1 Disposition: HOME, SELF-CARE Condition: Stable Scripts Naproxen* (NAPROXEN*) 500 Mg Tablet 500 MG ORAL TWICE A DAY for 10 Days, #20 TAB Prov: Nancy Ledesma 12/05/17 Patient Instructions: Muscle Cramps and Spasms, Tension Headache Additional Instructions: take medication as directed, avoid straneous physical activity. follow up with primary DrKel for possible MRI if tingling continues. if chest pain, sob, return to ED Nancy Ledesma Dec 05, 2017 12:40
[2017-12-05 12:50] VITALS: BP_SYST 112; BP_SYST 115; BP_DIAS 74; BP_DIAS 82
[2017-12-05] MEDS ORDERED: NAPROXEN500 M2 ORAL (12:55)
== END 2017-12-05 13:00 | disposition home or self-care (01) ==
LOC: EMR 12:55
DX: G44.209 Tension-type headache, unspecified, not intractable (principal); M62.830 Muscle spasm of back; Z88.1 Allergy status to other antibiotic agents; F41.9 Anxiety disorder, unspecified
CPT/HCPCS: 81025; 99283

== ENCOUNTER 2018-02-23 07:57 | Emergency (ER) | payer OTHER ==
[~2018-02-23] VITALS: Ht 165.1 cm; Wt 59.0 kg
[~2018-02-23 07:57] MED LIST changes: +NAPROXEN500 M2 ORAL
[2018-02-23] MEDS ORDERED: VENTOLIN HFA18 GM INH (08:27)
--- NOTE | 2018-02-23 08:27 | Emergency Room Report ---
History of Present Illness General Chief Complaint: Upper Respiratory Illness Source: Patient Present Illness HPI This patient c/o 2-3 days of viral URI symptoms including sore throat, rhinitis , nasal congestion, non productive cough. Malaise, myalgias, possibly tactile fever. The patient has no vomiting, chest pain or SOB. No travel history, leg pain/swelling. Allergies: Coded Allergies: AMOXICILLIN (Verified Allergy, Mild, Itching, 01/12/17) Patient History Last Menstrual Period: unk Now: No Review of Systems Constitutional: Reports: no symptoms Eye: Reports: no symptoms ENT: Reports: no symptoms Respiratory: Reports: see HPI, cough Cardiovascular: Reports: no symptoms Gastrointestinal: Reports: no symptoms Genitourinary: Reports: no symptoms Musculoskeletal: Reports: no symptoms Skin: Reports: no symptoms Psychiatric: Reports: no symptoms Neurological: Reports: no symptoms Endocrine: Reports: no symptoms Hematologic/Lymphatic: Reports: no symptoms Allergic: Reports: no symptoms All Other Systems: negative except mentioned in HPI Physical Exam Vital Signs Date Time Temp Pulse Resp B/P (MAP) Pulse Ox O2 Delivery O2 Flow Rate FiO2 02/23/18 08:04 98.8 71 20 99/47 98 Room Air 98.8 Sp02 EP Interpretation: reviewed, normal General Appearance: normal inspection, well appearing, no apparent distress, alert, GCS 15, non-toxic Head: normocephalic, atraumatic Eyes: bilateral eye normal inspection, bilateral eye PERRL, bilateral eye EOMI ENT: normal ENT inspection, hearing grossly normal, normal pharynx, no angioedema, normal voice, moist mucus membranes Neck: normal inspection, full range of motion, supple, no meningismus, no bony tend Respiratory: normal inspection, lungs clear, normal breath sounds, no rhonchi, no respiratory distress, no retraction, no accessory muscle use, other - subtle late expiratory wheeze Cardiovascular #1: normal inspection, regular rate, rhythm, no edema Gastrointestinal: normal inspection, normal bowel sounds, non tender, soft, no mass, non-distended Musculoskeletal: gait/station normal, normal range of motion Neurologic: normal inspection, alert, oriented x3, responsive, motor strength/ tone normal Psychiatric: normal inspection, judgement/insight normal, memory normal Suicide Risk Assessment: Suicidal Ideation: No Had intent to initiate attempt: No Pt's plan for suicide attempt: No Has means to complete attempt: No Skin: normal inspection, normal color, no rash, warm/dry Medical Decision Making Diagnostic Impression: Primary Impression: Upper respiratory infection ER Course could be early/mild bronchitis Last Vital Signs Date Time Temp Pulse Resp B/P (MAP) Pulse Ox O2 Delivery O2 Flow Rate FiO2 02/23/18 08:15 71 20 Room Air 02/23/18 08:04 98.8 99/47 98 98.8 Status: improved Disposition: HOME, SELF-CARE Condition: Stable Scripts Albuterol Sulfate (VENTOLIN HFA) 18 Gm Hfa.aer.ad 1 PUFF INH EVERY 6 HOURS, #18 GM 0 Refills Prov: Wale Lopez M.D. 02/23/18 Referrals: NON PHYSICIAN (PCP) Patient Instructions: Upper Respiratory Infection, Adult Wale Lopez M.D. Feb 23, 2018 08:27
[2018-02-23 08:32] VITALS: BP 105/54
== END 2018-02-23 08:32 | disposition home or self-care (01) ==
LOC: EMR 08:24
DX: J06.9 Acute upper respiratory infection, unspecified (principal); Z88.0 Allergy status to penicillin
CPT/HCPCS: 99282

== ENCOUNTER 2018-03-03 13:40 | Emergency (ER) | payer OTHER ==
[~2018-03-03] VITALS: Ht 165.1 cm; Wt 59.0 kg
[~2018-03-03 13:40] MED LIST changes: +VENTOLIN HFA18 GM INH
--- NOTE | 2018-03-03 14:12 | Emergency Room Report ---
History of Present Illness General Chief Complaint: Lower Extremity Injury Source: Patient Present Illness HPI 32-year-old female presenting with left foot pain. Says that around 5:30 PM yesterday she dropped a box on her foot that was very heavy. Now has complained of pain to her left toes in her foot. Has been able to ambulate on it but with pain. Has not taken any medication for it. No numbness or tingling denies any other complaints Allergies: Coded Allergies: AMOXICILLIN (Verified Allergy, Mild, Itching, 01/12/17) Patient History Past Medical History: see triage record Past Surgical History: none Pertinent Family History: none Last Menstrual Period: on period Reviewed Nursing Documentation: PMH: Agreed; PSxH: Agreed Nursing Documentation-PMH Past Medical History: No Stated History Review of Systems All Other Systems: negative except mentioned in HPI Physical Exam Vital Signs Date Time Temp Pulse Resp B/P (MAP) Pulse Ox O2 Delivery O2 Flow Rate FiO2 03/03/18 13:57 98.3 75 14 91/66 99 Room Air 98.2 Sp02 EP Interpretation: reviewed, normal General Appearance: normal inspection, mild distress Head: normocephalic, atraumatic Eyes: bilateral eye normal inspection, bilateral eye PERRL, bilateral eye EOMI ENT: normal ENT inspection Neck: normal inspection, full range of motion, supple Respiratory: no respiratory distress, speaking full sentences Cardiovascular #1: normal inspection, regular rate, rhythm Cardiovascular #2: 2+ radial (R), 2+ radial (L) Gastrointestinal: normal inspection Musculoskeletal: other - L foot ecchymosis and edema, first and 2nd toes, limited ROM 2/2 to pain, able to bear weight on both LE. no 5th metatarsal tenderness, no ankle tenderness. FROM ankle Neurologic: normal inspection, alert, oriented x3, responsive, motor strength/ tone normal, sensory intact, normal gait, speech normal Psychiatric: normal inspection, judgement/insight normal, memory normal Skin: normal inspection, normal color, no rash, warm/dry, well hydrated, normal turgor Medical Decision Making Diagnostic Impression: Primary Impression: Contusion of foot, left ER Course 32-year-old female with left foot pain after dropping something on it DDX: Contusion vs. fracture Plan: Pain control with motrin XR ER course: Patient reports improvement of pain with motrin. XR reveals soft tissue swelling without fracture RICARDO bandage applied. placed in hard sole shoe Disposition: Patient is to be discharged home with a prescription of motrin and norco Patient instructed to keep splint on at all times Patient educated to rest, ice, and elevate extremity and to avoid vigorous activity. Strict precautions discussed with patient on when to return to the emergency room including increased redness or swelling joints, increased pain/swelling of extremity, fever or chills, which could indicate severe illness.. Patient also instructed to follow up with an orthopedic doctor if continuing to have mild/moderate pain as he may need further outpatient imaging. Patient agrees with plan. Please note that this Emergency Department Report was dictated using [employer] and nonfiction author technology software, occasionally this can lead to erroneous entry secondary to interpretation by the dictation equipment. Xray ordered: Left foot 3 view Indication: Pain EP Interpretation: Yes Interpretation: No dislocation, no soft tissue swelling, no fractures Impression: No acute disease Electronically signed by Francisco Maldonado MD Last Vital Signs Date Time Temp Pulse Resp B/P (MAP) Pulse Ox O2 Delivery O2 Flow Rate FiO2 03/03/18 13:57 98.3 75 14 91/66 99 Room Air 98.2 Disposition: HOME, SELF-CARE Condition: Stable Scripts Hydrocodone Bit/Acetaminophen 5-325* (NORCO 5-325*) 1 Each Tablet 1 TAB ORAL Q6H PRN for For Pain, #20 TAB 0 Refills Prov: Francisco Maldonado M.D. 03/03/18 Ibuprofen* (MOTRIN*) 600 Mg Tablet 600 MG ORAL Q8H PRN for For Pain, #30 TAB 0 Refills Prov: Francisco Maldonado M.D. 03/03/18 Referrals: [facility] [place],REFERRING (PCP) Francisco Maldonado M.D. Mar 03, 2018 14:12
[2018-03-03] MEDS ORDERED: IBUPROFEN600 MG ORAL (14:30)
[2018-03-03] MEDS ORDERED: NORCO 5-325 TA1 EACH ORAL (14:50)
--- NOTE | 2018-03-03 16:07 | Diagnostic Imaging Report ---
Indication: Pain, trauma Technique: 3 views left foot Comparison: 07/30/2016 Findings: There is a nondisplaced fracture of the medial corner of the base of the first proximal phalanx. There is a nondisplaced fracture of the medial corner of the base of the second proximal phalanx. No other acute fractures. No dislocations. The joint spaces are preserved Impression: Positive for fractures of the first and second proximal phalanges Findings discussed by phone with Dr. Maldonado
[2018-03-03 20:10] VITALS: BP 91/66
== END 2018-03-03 14:30 | disposition home or self-care (01) ==
LOC: EMR 14:07
DX: S92.515A Nondisplaced fracture of proximal phalanx of left lesser toe(s), initial encounter for closed fracture (principal); S92.415A Nondisplaced fracture of proximal phalanx of left great toe, initial encounter for closed fracture; W22.8XXA Striking against or struck by other objects, initial encounter; Y92.89 Other specified places as the place of occurrence of the external cause
CPT/HCPCS: 99282

== ENCOUNTER 2018-05-30 08:51 | Emergency (ER) | payer OTHER ==
[~2018-05-30] VITALS: Ht 165.1 cm; Wt 59.0 kg
[~2018-05-30 08:51] MED LIST changes: +NORCO 5-325 TA1 EACH ORAL
[2018-05-30 09:08] VITALS: BP 101/73
[2018-05-30] MEDS ORDERED: Acetaminophen 500mg (ES) tab ORAL ONE (10:15)
[2018-05-30] MEDS ORDERED: Albuterol ud Inhalation HHN ONE (10:15)
--- NOTE | 2018-05-30 10:50 | Emergency Room Report ---
History of Present Illness General Chief Complaint: Flu Like Symptoms Source: Patient Present Illness HPI Patient states that for the past 3 days she has had congestion, sore throat, bodyaches and cough. She states she has had ear pain and poor appetite. She states she's been unable to sleep secondary to coughing. She denies fever or chills. She denies headache or neck pain. She has no other complaints. Allergies: Coded Allergies: AMOXICILLIN (Verified Allergy, Mild, Itching, 01/12/17) Patient History Past Medical History: see triage record, other - anemia Social History: Denies: smoking, alcohol use, drug use Last Menstrual Period: 12-10 Now: No Reviewed Nursing Documentation: PMH: Agreed; PSxH: Agreed Nursing Documentation-PMH Past Medical History: No History, Except For Review of Systems All Other Systems: negative except mentioned in HPI Physical Exam Vital Signs Date Time Temp Pulse Resp B/P (MAP) Pulse Ox O2 Delivery O2 Flow Rate FiO2 05/30/18 08:58 98.4 70 18 101/73 98 Room Air Sp02 EP Interpretation: reviewed, normal General Appearance: no apparent distress, alert, GCS 15, non-toxic Head: normocephalic, atraumatic Eyes: bilateral eye normal inspection, bilateral eye PERRL ENT: hearing grossly normal, normal pharynx, no angioedema, normal voice Neck: full range of motion, supple/symm/no masses Respiratory: chest non-tender, no respiratory distress, no retraction, no accessory muscle use, rhonchi, speaking full sentences, wheezing, expiration Cardiovascular #1: regular rate, rhythm, no edema Gastrointestinal: normal bowel sounds, non tender, soft, non-distended, no guarding, no rebound Rectal: deferred Musculoskeletal: back normal, gait/station normal, normal range of motion, non- tender Neurologic: alert, oriented x3, responsive, motor strength/tone normal, sensory intact, speech normal Psychiatric: judgement/insight normal, memory normal, mood/affect normal, no suicidal/homicidal ideation Skin: normal color, no rash, warm/dry, well hydrated Medical Decision Making Diagnostic Impression: Primary Impression: Viral upper respiratory illness Additional Impression: Bronchitis ER Course This patient has a clinical presentation consistent with influenza vs bronchitis. Patient overall is nontoxic with no evidence of pneumonia on chest x-ray. There does not appear to be any emergency complications. I do not feel this patient needs admission at this time. The patient has stable vital signs. The patient is very concerned about bacterial infection. I will give her a course of azithromycin given the severity of her symptoms. She does have wheezing and rhonchi and coarse breath sounds. She was given albuterol nebulizer treatment in the emergency department and states that it did not help her. She does not want an inhaler. Regardless, the patient is nontoxic. The patient given close return precautions and followup instructions. Please note that this Emergency Department Report was dictated using [employer] production worker technology software, occasionally this can lead to erroneous entry secondary to interpretation by the dictation equipment. Rapid influenza test is negative. Chest X-Ray Diagnostic Results Chest X-Ray Diagnostic Results : Chest X-Ray Ordered: Yes # of Views/Limited/Complete: 1 View Indication: Other - cough Interpretation: no consolidation, no effusion, no pneumothorax, no acute cardiopulmonary disease Impression: No acute disease Electronically Signed by: Helga Daily DO Last Vital Signs Date Time Temp Pulse Resp B/P (MAP) Pulse Ox O2 Delivery O2 Flow Rate FiO2 05/30/18 09:08 70 18 Room Air 05/30/18 09:08 98.4 101/73 98 Status: improved Disposition: HOME, SELF-CARE Condition: Improved Referrals: [facility]ERR[facility] (PCP) Helga Daily DO May 30, 2018 10:50
[2018-05-30] MEDS ORDERED: Albuterol ud Inhalation ONE (11:12)
[2018-05-30] MEDS ORDERED: ACETAMINOPHEN500 M3 ORAL (12:03)
[2018-05-30] MEDS ORDERED: IBUPROFEN800 MG ORAL (12:03)
[2018-05-30] MEDS ORDERED: ZITHROMAX250 MG ORAL (12:03)
--- NOTE | 2018-05-30 12:04 | Diagnostic Imaging Report ---
Indication: Cough Technique: One view of the chest Comparison: 08/03/2017 Findings: Lungs and pleural spaces are clear. Heart size is normal. No significant interim change Impression: No acute process
[2018-05-30 12:15] VITALS: BP 117/83
== END 2018-05-30 12:15 | disposition home or self-care (01) ==
LOC: EMR 09:35
DX: J40 Bronchitis, not specified as acute or chronic (principal); Z88.0 Allergy status to penicillin; B34.9 Viral infection, unspecified
CPT/HCPCS: 71045; 86710; 94640; 99283

== ENCOUNTER 2018-07-07 14:31 | Emergency (ER) | payer OTHER ==
[~2018-07-07] VITALS: Ht 162.6 cm; Wt 54.4 kg
[~2018-07-07 14:31] MED LIST changes: +ACETAMINOPHEN500 M3 ORAL; +IBUPROFEN800 MG ORAL; +PREDNISONE20 MG ORAL; +ZITHROMAX250 MG ORAL
[2018-07-07 14:35] VITALS: BP 101/60
--- NOTE | 2018-07-07 14:42 | NUR ---
ED Nurse Note: patient walked into ED c/o of flu like symptoms, patient states that she has been experiencing sore throat, SOB and accessory muscle pain in the chest, patient is alert and oriented x4, ambulatory with a steady gait, VSS
[2018-07-07] MEDS ORDERED: Albuterol/Ipratropium 3ml neb HHN ONE (15:00)
--- NOTE | 2018-07-07 15:00 | Emergency Room Report ---
History of Present Illness General Chief Complaint: Flu Like Symptoms Source: Patient, Medical Record Present Illness HPI Patient is a 32-year-old female presented after increased congestion as well as chest discomfort. Patient reports having prior history of asthma. She reports having been taking oral steroids. She reports having increased nonproductive cough as well as sharp chest discomfort. She denies other past medical history. She reports having increased vaginal bleeding. She denies . Allergies: Coded Allergies: AMOXICILLIN (Verified Allergy, Mild, Itching, 01/12/17) Patient History Past Medical History: see triage record Now: No Reviewed Nursing Documentation: PMH: Agreed; PSxH: Agreed Nursing Documentation-PMH Hx Asthma: Yes Review of Systems All Other Systems: negative except mentioned in HPI Physical Exam Vital Signs Date Time Temp Pulse Resp B/P (MAP) Pulse Ox O2 Delivery O2 Flow Rate FiO2 07/07/18 14:35 98.2 88 18 101/60 98 Room Air Sp02 EP Interpretation: reviewed, normal General Appearance: normal inspection, well appearing, no apparent distress, alert, GCS 15 Head: atraumatic ENT: normal ENT inspection, hearing grossly normal, normal voice Neck: normal inspection, full range of motion, supple, no bony tend Respiratory: normal inspection, lungs clear, normal breath sounds, no respiratory distress, no retraction, no wheezing Cardiovascular #1: regular rate, rhythm, no edema Gastrointestinal: normal inspection, normal bowel sounds, non tender, soft, no guarding, no hernia Genitourinary: no CVA tenderness Musculoskeletal: normal inspection, back normal, normal range of motion Neurologic: normal inspection, alert, oriented x3, responsive, salon receptionist III-XII nml as tested, speech normal Psychiatric: normal inspection, judgement/insight normal, mood/affect normal Skin: normal inspection, normal color, no rash Medical Decision Making Diagnostic Impression: Primary Impression: Viral respiratory infection ER Course Patient presented for increased cough and chest discomfort. Differential diagnosis included but was not limited to acute coronary syndrome, pulmonary embolism, pneumonia, aortic dissection, shingles, pneumothorax, aortic dissection, esophageal rupture, pericarditis. EKG interpreted by me showed normal sinus rhythm with a rate of [address] or T wave changes. Patient was noted to have what appeared to be a respiratory infection. Urine test was ordered. Chest x-ray patient. Patient was given breathing treatment. Patient does not appear to have any evidence of systemic toxicity at this time. Chest x-ray 1 view read by radiology showed normal cardiac size without evident infiltrate. Patient does not have any risk factors for pulmonary embolism. She is given Toradol for pain. Patient is advised to recheck with primary care physician in 1-2 days. Labs Test 07/07/18 14:45 Urine HCG, Qualitative Negative (NEGATIVE) EKG Diagnostic Results Rate: normal Rhythm: NSR ST Segments: no acute changes Last Vital Signs Date Time Temp Pulse Resp B/P (MAP) Pulse Ox O2 Delivery O2 Flow Rate FiO2 07/07/18 14:35 98 18 Room Air 07/07/18 14:35 98.2 101/60 98 Status: improved Disposition: HOME, SELF-CARE Condition: Stable Scripts Guaifenesin* (ADULT WAL-TUSSIN*) 100 Mg/5 Ml Liquid 5 ML ORAL Q4H, #120 ML Prov: Prasad Reza MD 07/07/18 Naproxen* (NAPROSYN*) 250 Mg Tablet 250 MG ORAL TWICE A DAY, #60 TAB 0 Refills Prov: Prasad Reza MD 07/07/18 Referrals: [facility]ERR[facility] (PCP) Prasad Reza MD Jul 07, 2018 15:00
--- NOTE | 2018-07-07 15:51 | Diagnostic Imaging Report ---
Indication: Shortness of breath Technique: One view of the chest Comparison: 06/22/2018 Findings: Lungs and pleural spaces are clear. Heart size is normal . No significant interim change Impression: No acute process
[2018-07-07] MEDS ORDERED: Ketorolac 60mg Inj IM ONE (16:00)
[2018-07-07] MEDS ORDERED: NAPROXEN250 MG ORAL (16:04)
[2018-07-07] MEDS ORDERED: ADULT WAL-100 MG/5 M ORAL (16:04)
[2018-07-07 16:13] VITALS: BP 101/60
--- NOTE | 2018-07-07 16:13 | NUR ---
ED Nurse Note: PT is medically cleared per ERMD order. pt is stable for transfer. pt status condition and vital signs are reported to ERMD prior to DC. pt vital signs are stable. pt is alert and oriented times 4. pt left with all belongings, including DC notes and prescriptions. pt was able to teach back and understands DC notes and prescription. pt is instructed to follow up with primary MD as soon as possible, pt is instructed to return to ER if any variance in condition. ID band removed
--- NOTE | 2018-07-10 11:13 | Cardiology Report ---
APPROVED REPORT EKG Measurement Heart [id number] Normal sinus rhythm Normal ECG
== END 2018-07-07 16:14 | disposition home or self-care (01) ==
LOC: EMR 14:45
DX: B34.9 Viral infection, unspecified (principal); R07.89 Other chest pain; J45.909 Unspecified asthma, uncomplicated
CPT/HCPCS: 71045; 81025; 93005; 94640; 96372; 99284; J7620

== ENCOUNTER 2018-08-27 09:32 | Emergency (ER) | payer OTHER ==
[~2018-08-27] VITALS: Ht 160 cm; Wt 55.8 kg
[~2018-08-27 09:32] MED LIST changes: +ADULT WAL-100 MG/5 M ORAL; +NAPROXEN250 MG ORAL
[2018-08-27 09:50] VITALS: BP 89/59
--- NOTE | 2018-08-27 09:55 | NUR ---
ED Nurse Note:pt. came with c/o cough sore throat
[2018-08-27] MEDS: Albuterol ud Inhalation HHN SCH ×3 (10:10→10:35)
--- NOTE | 2018-08-27 10:12 | Emergency Room Report ---
History of Present Illness General Chief Complaint: Upper Respiratory Illness Source: Patient Present Illness HPI 32-year-old female with history of asthma presents chronic history of cough with yellow sputum production, denies fevers, abdominal pain, urinary symptoms. She denies hemoptysis or chest pain as well. She reports she tried her inhaler without relief but she has not been on recent steroids or antibiotics. Allergies: Coded Allergies: AMOXICILLIN (Verified Allergy, Mild, Itching, 01/12/17) Patient History Past Medical History: see triage record Last Menstrual Period: 08/2018 Now: No Reviewed Nursing Documentation: PMH: Agreed; PSxH: Agreed Nursing Documentation-PMH Past Medical History: No History, Except For Hx Asthma: Yes Review of Systems All Other Systems: negative except mentioned in HPI Physical Exam Vital Signs Date Time Temp Pulse Resp B/P (MAP) Pulse Ox O2 Delivery O2 Flow Rate FiO2 08/27/18 09:37 98.8 82 20 89/59 96 Room Air Sp02 EP Interpretation: reviewed, normal General Appearance: no apparent distress, alert, non-toxic Head: normocephalic Eyes: bilateral eye normal inspection, bilateral eye PERRL, bilateral eye EOMI ENT: normal ENT inspection, hearing grossly normal, normal pharynx, no angioedema, normal voice, moist mucus membranes Neck: normal inspection, full range of motion, supple, supple/symm/no masses Respiratory: chest non-tender, normal breath sounds, no rhonchi, no respiratory distress, no retraction, no accessory muscle use, speaking full sentences, wheezing, expiration, chest symmetrical, palpation of chest normal Cardiovascular #1: normal peripheral pulses, regular rate, rhythm, no edema, no gallop, no JVD, no murmur, no rub Cardiovascular #2: 2+ radial (R), 2+ radial (L) Gastrointestinal: normal inspection, non tender, soft, no mass, no guarding, no rebound Rectal: deferred Genitourinary: normal inspection, no CVA tenderness Musculoskeletal: back normal, gait/station normal, normal range of motion, non- tender, no calf tenderness Neurologic: alert, responsive, computer aided design drafter III-XII nml as tested, motor strength/tone normal, sensory intact, speech normal Psychiatric: judgement/insight normal, memory normal, mood/affect normal Skin: normal color, no rash, warm/dry, normal turgor Lymphatic: no adenopathy Medical Decision Making Diagnostic Impression: Primary Impression: Upper respiratory infection Additional Impression: Asthma attack ER Course Patient with asthma exacerbation, was given nebs here, showed improvement, we' ll discharge the patient for prednisone and albuterol inhaler refill recommend ice every 3-4 hours, follow-up with PMD in 2 days. Chest X-Ray Diagnostic Results Chest X-Ray Diagnostic Results : Chest X-Ray Ordered: Yes # of Views/Limited/Complete: 1 View Indication: Shortness of Breath EP Interpretation: Yes Interpretation: no consolidation, no effusion, no pneumothorax, no acute cardiopulmonary disease Impression: No acute disease Electronically Signed by: Nahomy Wylie MD Last Vital Signs Date Time Temp Pulse Resp B/P (MAP) Pulse Ox O2 Delivery O2 Flow Rate FiO2 08/27/18 09:50 82 20 Room Air 08/27/18 09:50 98.8 89/59 96 Disposition: HOME, SELF-CARE Condition: Stable NAHOMY WYLIE M.D Aug 27, 2018 10:12
[2018-08-27] MEDS ORDERED: ALBUTEROL SULF8.5 GM INH (11:00)
[2018-08-27] MEDS ORDERED: PREDNISONE20 MG ORAL (11:00)
--- NOTE | 2018-08-27 11:00 | Diagnostic Imaging Report ---
EXAM: XR Chest, 1 View CLINICAL HISTORY: COUGH TECHNIQUE: Frontal view of the chest. COMPARISON: Chest x-ray dated 07/07/18. CT chest dated 06/22/18. FINDINGS: Lungs: Mildly increased interstitial markings. The lungs are otherwise clear without focal consolidation. Pleural space: Unremarkable. The costophrenic angles are sharp. No visible pneumothorax. Heart: Unremarkable. No cardiomegaly. Mediastinum: Unremarkable. Bones/joints: Unremarkable. IMPRESSION: Mildly increased interstitial markings. This is nonspecific and cannot exclude a mild bronchitis or interstitial pneumonitis. No focal consolidation.
[2018-08-27 11:35] VITALS: BP 97/62
--- NOTE | 2018-08-27 11:36 | NUR ---
ER DISCHARGE NOTE: Patient is cleared to be discharged per ERMD, pt is aox4, on room air, with stable vital signs. pt was given dc and prescription instructions, pt was able to verbalize understanding, pt is able to ambulate with steady gait. pt took all belongings.
== END 2018-08-27 11:36 | disposition home or self-care (01) ==
LOC: EMR 10:09
DX: J06.9 Acute upper respiratory infection, unspecified (principal); J45.909 Unspecified asthma, uncomplicated; Z88.0 Allergy status to penicillin
CPT/HCPCS: 71045; 94640; 99283; J7512

== ENCOUNTER 2019-01-05 11:54 | Emergency (ER) | payer OTHER ==
[~2019-01-05] VITALS: Ht 160 cm; Wt 54.4 kg
[2019-01-05 12:00] VITALS: BP 110/72
--- NOTE | 2019-01-05 12:18 | NUR ---
ED Nurse Note: pt with pain as per triage eval by pac. pt a/ox4 states no numbness or tingling to area. pt able to weight beart andutilizing extremities without impairment
--- NOTE | 2019-01-05 12:19 | Emergency Room Report ---
History of Present Illness General Chief Complaint: Pain Source: Patient Present Illness HPI 33-year-old female with no significant past medical history here complaining of 2 days of acute onset of left wrist pain with no injury. Patient is rating the pain 10 out of 10 with radiation and numbness feeling in all her fingers on the left side. 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 Patient has not taken medication for pain. Rating the pain constant sharp. Also complains of one week of new onset of right ankle pain denies any twisting or injury. Denies wearing high heels. Denies having history of rheumatoid or osteoarthritis. Denies tingling and numbness and cold denies calf tenderness rating the pain ankle 7 out of 10 upon walking. Patient also reports of swelling at the end of the day in the right ankle however it minimizes upon elevation of her feet. Denies chest pain, shortness of breath, palpitation, abdominal Pain, nausea vomiting, no other associated symptoms. Allergies: Coded Allergies: AMOXICILLIN (Verified Allergy, Mild, Itching, 01/12/17) Patient History Past Medical History: see triage record Past Surgical History: unable to obtain Pertinent Family History: none Last Menstrual Period: 12/14/2018 Now: No Immunizations: UTD Reviewed Nursing Documentation: PMH: Agreed; PSxH: Agreed Nursing Documentation-PMH Past Medical History: No History, Except For Hx Asthma: Yes Review of Systems All Other Systems: negative except mentioned in HPI Physical Exam Vital Signs Date Time Temp Pulse Resp B/P (MAP) Pulse Ox O2 Delivery O2 Flow Rate FiO2 01/05/19 12:00 98.1 16 110/72 98 Room Air 01/05/19 12:00 87 Sp02 EP Interpretation: reviewed, normal General Appearance: normal inspection, well appearing, no apparent distress, alert Head: normocephalic, atraumatic Eyes: bilateral eye normal inspection, bilateral eye PERRL ENT: normal ENT inspection, hearing grossly normal, no angioedema Neck: normal inspection, full range of motion, supple Respiratory: normal inspection, chest non-tender, lungs clear, normal breath sounds, no wheezing Cardiovascular #1: normal inspection, normal peripheral pulses, regular rate, rhythm, no edema, no murmur Cardiovascular #2: 2+ radial (R), 2+ radial (L), 2+ dorsalis pedis (R), 2+ dorsalis pedis (L) Gastrointestinal: normal inspection, non tender, soft Rectal: deferred Genitourinary: normal inspection, no CVA tenderness Musculoskeletal: back normal, digits/nails normal, gait/station normal, non- tender, no calf tenderness, other - Positive Phalen sign Neurologic: normal inspection, alert, oriented x3, responsive, guillotine trimmer III-XII nml as tested Psychiatric: normal inspection, judgement/insight normal Skin: no rash Lymphatic: normal inspection, no adenopathy Medical Decision Making PA Attestation All my diagnosis and treatment plans were reviewed ad discussed with my supervising physician Dr. Ramirez Diagnostic Impression: Primary Impression: Carpal tunnel syndrome of right wrist Additional Impression: Right ankle swelling ER Course 33-year-old female with no significant past medical history here complaining of 2 days of acute onset of left wrist pain with no injury. Patient is rating the pain 10 out of 10 with radiation and numbness feeling in all her fingers on the left side. 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 Patient has not taken medication for pain. Rating the pain constant sharp. Also complains of one week of new onset of right ankle pain denies any twisting or injury. Denies wearing high heels. Denies having history of rheumatoid or osteoarthritis. Denies tingling and numbness and cold denies calf tenderness rating the pain ankle 7 out of 10 upon walking. Patient also reports of swelling at the end of the day in the right ankle however it minimizes upon elevation of her feet. Denies chest pain, shortness of breath, palpitation, abdominal Pain, nausea vomiting, no other associated symptoms. Ddx considered but are not limited to : Wrist sprain, wrist strain, wrist fracture, carpal tunnel syndrome,, ankle fracture, ankle sprain, ankle strain Vital signs: are WNL, pt. is afebrile H&PE are most consistent with: Carpal tunnel syndrome of left wrist, right ankle swelling ORDERS: Wrist x-ray, ankle x-ray, naproxen, Robaxin ED INTERVENTIONS: Raphael wrap DISCHARGE: At this time pt. is stable for d/c to home. Will provide printed patient care instructions, and any necessary prescriptions. Care plan and follow up instructions have been discussed with the patient prior to discharge. Take medication as directed follow with your primary care provider as primary doctor to do arthritis panel Other X-Ray Diagnostic Results Other X-Ray Diagnostic Results #1: X-Ray ordered: Left wrist # of Views/Limited Vs Complete: 2 View Indication: Pain EP Interpretation: Yes GOYO Xray: Interpretation reviewed, by supervising MD, and agrees with findings. Interpretation: no dislocation, no soft tissue swelling, no fractures Impression: No acute disease Electronically Signed by: Nancy Marino PA-C Other X-Ray Diagnostic Results #2: X-Ray ordered: Right ankle # of Views/Limited Vs Complete: 3 View Indication: Pain EP Interpretation: Yes GOYO Xray: Interpretation reviewed, by supervising MD, and agrees with findings. Interpretation: no dislocation, no soft tissue swelling, no fractures Impression: No acute disease Electronically Signed by: Nancy Marino PA-C Last Vital Signs Date Time Temp Pulse Resp B/P (MAP) Pulse Ox O2 Delivery O2 Flow Rate FiO2 01/05/19 12:00 98.1 87 16 110/72 (85) 98 Room Air Disposition: HOME, SELF-CARE Condition: Stable Patient Instructions: Achilles Tendinitis, Carpal Tunnel Syndrome, [id number] Additional Instructions: See primary care provider for follow-up take medication as directed have your primary doctor do an arthritis panel Nancy Ledesma Jan 05, 2019 12:19
--- NOTE | 2019-01-05 12:36 | NUR ---
ED Nurse Note:pt with xrays done.
[2019-01-05] MEDS ORDERED: ROBAXIN500 MG PO (12:45)
[2019-01-05] MEDS ORDERED: NAPROXEN500 M2 ORAL (12:45)
--- NOTE | 2019-01-05 12:51 | Diagnostic Imaging Report ---
Indication: Left wrist pain Findings: 2 views of the left wrist were obtained. No acute fractures, malalignment, erosions or periostitis are identified. Soft tissues are unremarkable. Impression: No acute findings.
--- NOTE | 2019-01-05 12:51 | Diagnostic Imaging Report ---
Indication: Pain right ankle ankle pain/trauma Comparison: None Findings: 3 views of the right ankle obtained. No acute fracture, malalignment, periostitis, or osteochondral defects are identified. Soft tissues are unremarkable.. Impression: No acute findings
[2019-01-05 12:57] VITALS: BP 110/72
--- NOTE | 2019-01-05 12:57 | NUR ---
ER DISCHARGE NOTE: Patient is cleared to be discharged per ERMD, pt is aox4, on room air, with stable vital signs. pt was given dc and prescription instructions, pt was able to verbalize understanding, pt id band removed . pt is able to ambulate with steady gait. pt took all belongings.
== END 2019-01-05 12:59 | disposition home or self-care (01) ==
LOC: EMR 12:44
DX: G56.02 Carpal tunnel syndrome, left upper limb (principal); M25.471 Effusion, right ankle; J45.909 Unspecified asthma, uncomplicated; Z88.0 Allergy status to penicillin
CPT/HCPCS: 99284

== ENCOUNTER 2019-01-12 09:28 | Emergency (ER) | payer OTHER ==
[~2019-01-12] VITALS: Ht 152.4 cm; Wt 54.4 kg
[~2019-01-12 09:28] MED LIST changes: +ROBAXIN500 MG PO
--- NOTE | 2019-01-12 09:42 | NUR ---
ED Nurse Note: pt walked in due to cough and congestion started last night, pt stated she has hx of asthma and was on inhaler. ermd on bedside
[2019-01-12 09:44] VITALS: BP 104/66
[2019-01-12] MEDS ORDERED: Dexamethasone 4mg/ml vial ORAL ONE (09:45)
--- NOTE | 2019-01-12 09:45 | Emergency Room Report ---
History of Present Illness General Chief Complaint: Upper Respiratory Illness Source: Patient Present Illness HPI 33-year-old female history of asthma presents with cough, congestion, generalized body aches, subjective fever/chills x1 day, no aggravating or alleviating factors, severity is moderate, patient also feels like her chest is a little tight from her asthma, no nausea no vomiting, he does endorse some abdominal ache no dysuria, patient thinks she may have been exposed to someone at work, patient is requesting a sick note. Allergies: Coded Allergies: AMOXICILLIN (Verified Allergy, Mild, Itching, 01/12/17) Patient History Past Medical History: see triage record Last Menstrual Period: 12/12/18 Now: No : 0 Para: 0 Reviewed Nursing Documentation: PMH: Agreed; PSxH: Agreed Nursing Documentation-PMH Past Medical History: No History, Except For Hx Asthma: Yes Review of Systems Constitutional: Reports: chills, fever Eye: Denies: blurred vision, double vision ENT: Reports: throat pain, nasal discharge Respiratory: Reports: cough, shortness of breath, wheezing Cardiovascular: Denies: chest pain, palpitations Gastrointestinal: Reports: abdominal pain; Denies: diarrhea, nausea, vomiting Genitourinary: Denies: dysuria, pain Musculoskeletal: Reports: muscle pain; Denies: back pain Skin: Denies: rash, lesions Neurological: Denies: headache, focal weakness Hematologic/Lymphatic: Denies: easy bleeding, easy bruising All Other Systems: negative except mentioned in HPI Physical Exam Vital Signs Date Time Temp Pulse Resp B/P (MAP) Pulse Ox O2 Delivery O2 Flow Rate FiO2 01/12/19 09:31 98.4 95 19 104/66 (79) 96 Room Air Sp02 EP Interpretation: reviewed, normal General Appearance: well appearing, no apparent distress, alert Head: normocephalic, atraumatic Eyes: bilateral eye PERRL, bilateral eye EOMI ENT: uvula midline, moist mucus membranes, other - Nasal congestion present Neck: supple, thyroid normal, supple/symm/no masses Respiratory: lungs clear, no respiratory distress, no retraction, no accessory muscle use Cardiovascular #1: normal peripheral pulses, regular rate, rhythm, no edema, no gallop, no murmur Gastrointestinal: non tender, soft, no guarding, no rebound Musculoskeletal: normal inspection Neurologic: alert, oriented x3 Psychiatric: mood/affect normal Skin: no rash, warm/dry Medical Decision Making Diagnostic Impression: Primary Impression: Upper respiratory infection ER Course 33-year-old female presents most likely with an upper respiratory infection, will provide patient with Decadron for her asthma, x-ray shows no evidence of infiltrate, low suspicion for pneumonia, sepsis. Disposition home with return precautions Chest X-Ray Diagnostic Results Chest X-Ray Diagnostic Results : Chest X-Ray Ordered: Yes # of Views/Limited/Complete: 1 View Indication: Shortness of Breath Interpretation: no consolidation, no effusion, no pneumothorax, no acute cardiopulmonary disease Impression: No acute disease Electronically Signed by: Garcia Choi MD Last Vital Signs Date Time Temp Pulse Resp B/P (MAP) Pulse Ox O2 Delivery O2 Flow Rate FiO2 01/12/19 09:44 98.4 95 19 104/66 96 Room Air Disposition: HOME, SELF-CARE Condition: Improved Scripts Benzonatate (Tessalon Perle) 100 Mg Capsule 100 MG ORAL THREE TIMES A DAY PRN for For Cough, #21 PERLE Prov: Garcia Choi MD 01/12/19 Departure Forms: Return to Work Return to Work Date: Jan 16, 2019 Patient Instructions: Upper Respiratory Infection, Adult Additional Instructions: The patient was provided with discharge instructions, notified to follow-up with a primary care doctor and or specialist in the next 24-48 hours, and to return to the ED if they have worsening of their symptoms. Please note that this report is being documented using Keyade technology. This can lead to erroneous entry secondary to incorrect interpretation by the dictating instrument. Garcia Choi MD Jan 12, 2019 09:45
--- NOTE | 2019-01-12 09:50 | NUR ---
ED Nurse Note: xray on bedside
[2019-01-12] MEDS ORDERED: TESSALON PERLE100 M2 ORAL (09:57)
[2019-01-12 10:04] VITALS: BP 104/66
--- NOTE | 2019-01-12 10:04 | NUR ---
ER DISCHARGE NOTE: Patient is cleared to be discharged per ERMD, pt is aox4, on room air, with stable vital signs. pt was given dc and prescription instructions, pt was able to verbalize understanding, pt id band removed without complications. pt is able to ambulate with steady gait. pt took all belongings.
--- NOTE | 2019-01-12 10:45 | Diagnostic Imaging Report ---
Indication: Cough Technique: One view of the chest Comparison: none Findings: Lungs and pleural spaces are clear. Heart size is normal. No significant interim change Impression: No acute process
== END 2019-01-12 10:04 | disposition home or self-care (01) ==
LOC: EMR 09:45
DX: J06.9 Acute upper respiratory infection, unspecified (principal); J45.909 Unspecified asthma, uncomplicated; Z88.0 Allergy status to penicillin
CPT/HCPCS: 71045; 81025; 99283; J1100

== ENCOUNTER 2019-02-25 09:39 | Emergency (ER) | payer OTHER ==
[~2019-02-25] VITALS: Ht 160 cm; Wt 54.4 kg
[~2019-02-25 09:39] MED LIST changes: +TESSALON PERLE100 M2 ORAL
[2019-02-25] MEDS ORDERED: Acetaminophen 500mg (ES) tab ORAL ONE (10:00)
[2019-02-25] MEDS ORDERED: ROBAXIN-750750 MG PO (10:12)
[2019-02-25] MEDS ORDERED: LIDODERM700 M1 TOPIC (10:12)
[2019-02-25] MEDS ORDERED: NAPROXEN250 MG ORAL (10:12)
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
[2019-02-25] MEDS ORDERED: oxyCODONE HCL/Acetaminophen 5/325mg ORAL ONE (10:15)
[2019-02-25] MEDS ORDERED: Naproxen 500mg tab ORAL ONE (10:15)
[2019-02-25 11:55] VITALS: BP 121/78
== END 2019-02-25 10:30 | disposition home or self-care (01) ==
LOC: EMR 09:55
DX: T14.8XXA Other injury of unspecified body region, initial encounter (principal); M54.5 Low back pain; J45.909 Unspecified asthma, uncomplicated; Z88.1 Allergy status to other antibiotic agents; V43.52XA Car driver injured in collision with other type car in traffic accident, initial encounter; Y92.410 Unspecified street and highway as the place of occurrence of the external cause
CPT/HCPCS: 81025; Z7502; 99283

== ENCOUNTER 2019-05-30 17:07 | Emergency (ER) | payer OTHER ==
[~2019-05-30] VITALS: Ht 160 cm; Wt 54.4 kg
[~2019-05-30 17:07] MED LIST changes: +LIDODERM700 M1 TOPIC; +ROBAXIN-750750 MG PO
[2019-05-30 17:22] VITALS: BP 111/72
[2019-05-30] MEDS ORDERED: Albuterol/Ipratropium 3ml neb HHN ONE (18:00)
[2019-05-30 19:10] VITALS: BP 110/64
[2019-05-30] MEDS ORDERED: ALBUTEROL SULF8.5 GM INH (19:36)
--- NOTE | 2019-05-30 19:36 | Emergency Room Report ---
History of Present Illness General Chief Complaint: Flu Like Symptoms Source: Patient Present Illness HPI 33-year-old female complaining of flulike symptoms. She complains of cough and chest pain when she coughs. Symptoms started 3 to 4 days ago. Cough is nonproductive in nature. She has a history of asthma and has not taken any medications. She denies any fevers, chills, nausea or vomiting. Allergies: Coded Allergies: AMOXICILLIN (Verified Allergy, Mild, Itching, 01/12/17) Patient History Past Medical History: asthma, renal disease Past Surgical History: none Last Menstrual Period: 05/17/2019 Nursing Documentation-[facility] Past Medical History: No History, Except For Hx Asthma: Yes Review of Systems Constitutional: Denies: chills, fever Respiratory: Reports: cough; Denies: shortness of breath Cardiovascular: Reports: chest pain; Denies: palpitations Gastrointestinal: Denies: diarrhea, vomiting Genitourinary: Denies: hematuria, pain Musculoskeletal: Denies: joint swelling Skin: Denies: rash, lesions Neurological: Denies: headache, dizziness Physical Exam Vital Signs Date Time Temp Pulse Resp B/P (MAP) Pulse Ox O2 Delivery O2 Flow Rate FiO2 05/30/19 17:13 98.4 75 15 111/72 (85) 99 Room Air 05/30/19 17:25 97 Sp02 EP Interpretation: reviewed General Appearance: well appearing, no apparent distress, non-toxic Head: normocephalic, atraumatic Eyes: bilateral eye normal inspection ENT: hearing grossly normal, EOM grossly intact, moist mucus membranes Neck: supple Respiratory: lungs clear, normal breath sounds, no rhonchi, no respiratory distress, no retraction, no accessory muscle use, no wheezing, speaking full sentences Cardiovascular #1: regular rate, rhythm, normal capillary refill Cardiovascular #2: 2+ radial (R), 2+ radial (L) Gastrointestinal: soft, non-distended Rectal: deferred Musculoskeletal: moves extm spontaneously, no lower extremity edema Neurologic: grossly normal Psychiatric: mood/affect normal Skin: warm/dry, normal turgor Medical Decision Making Diagnostic Impression: Primary Impression: Influenza-like symptoms ER Course 33-year-old female complaining of cough and chest pain. Found to have no acute respiratory distress, no stridor. History of asthma so we will give breathing treatment and reassess. Will perform x-ray to look for signs of pneumonia. Will check for influenza as it is active at this time of year. Microbiology Date/Time Source Procedure Growth Status 05/30/19 18:00 Nasal Nares - Final Complete 05/30/19 18:00 Nasal Nares - Final Complete Chest X-Ray Diagnostic Results Chest X-Ray Diagnostic Results : # of Views/Limited/Complete: 1 View Indication: Shortness of Breath EP Interpretation: Yes Interpretation: no consolidation, no effusion, no pneumothorax, no acute cardiopulmonary disease Last Vital Signs Date Time Temp Pulse Resp B/P (MAP) Pulse Ox O2 Delivery O2 Flow Rate FiO2 05/30/19 19:10 98.4 74 18 110/64 100 Room Air 05/30/19 18:17 21 Reevaluation Impression pts symptoms improved. pt stable for outpt follow up and discharge. no signs of respiratory compromise or distress. Disposition: HOME, SELF-CARE Condition: Stable Scripts Albuterol Sulfate* (ALBUTEROL SULFATE MDI*) 8.5 Gm Hfa.aer.ad 2 PUFF INH Q4H PRN for cough/wheezing, #1 EA 0 Refills Prov: Reza Branch M.D. 05/30/19 Patient Instructions: Cough, Adult Additional Instructions: Please follow-up with your primary care doctor in 2 to 3 days Reza Branch M.D. May 30, 2019 19:36
[2019-05-30 19:47] VITALS: BP 111/68
--- NOTE | 2019-06-01 18:06 | Diagnostic Imaging Report ---
Indication: Cough Technique: One view of the chest Comparison: A 07/03/2018 Findings: Lungs and pleural spaces are clear. Heart size is normal. No significant change Impression: No acute process
== END 2019-05-30 19:47 | disposition home or self-care (01) ==
LOC: EMR 18:41
DX: J11.1 Influenza due to unidentified influenza virus with other respiratory manifestations (principal); Z88.0 Allergy status to penicillin
CPT/HCPCS: 71045; 86710; Z7502; 99284; J7620

== ENCOUNTER 2019-07-01 23:12 | Emergency (ER) | payer OTHER ==
[~2019-07-01] VITALS: Ht 165.1 cm; Wt 54.4 kg
[~2019-07-01 23:12] MED LIST changes: +ACETAMINOPHEN325 M1 ORAL; +DEBROX15 M1 BOTH EARS
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
[2019-07-02] VITALS: BP 101/64
[2019-07-02 01:45] VITALS: BP 98/61
--- NOTE | 2019-07-02 02:00 | NUR ---
ED Nurse Note: Pt continues to rest quietly in bed, responds to very deep painflu stimuli only, moaning and groaning, non-comprehensible sounds only, pt v/s stable, no sob or labored brething, 02 njk=132% 9on RA, will continue to closely monitor waiting for pt to awaken.
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
--- NOTE | 2019-07-02 04:15 | NUR ---
ED Nurse Note: Pt is awakening and responding more, able to staste name and asking questions of where she is at and what happend, pt can not recall event, v/s stable, no sob or labored breathing, pt falls back to sleep very fast, remains on cardiac monitoring, nad noted, will continue to closely monitor for any changes while pt is awakening.
[2019-07-02 05:35] VITALS: BP 121/57
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
[2019-07-02 06:00] VITALS: BP 121/57
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
== END 2019-07-02 06:00 | disposition home or self-care (01) ==
LOC: EDBD 23:12 → EDUNIT# 23:12 → EMR 23:45
DX: F15.10 Other stimulant abuse, uncomplicated (principal); Z88.0 Allergy status to penicillin
CPT/HCPCS: 99282

== ENCOUNTER 2020-01-31 08:56 | Emergency (ER) | payer OTHER ==
[~2020-01-31] VITALS: Ht 157.5 cm; Wt 54.4 kg
--- NOTE | 2020-01-31 09:25 | NUR ---
ED Nurse Note:pt. came from home with c/o asthma exacerbation and general weakness, blood and urine sent to labs, VSS, pt. is A/Ox4 ambulatory, covid swab done, given PO meds
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
[2020-01-31 09:35] VITALS: BP 103/71
[2020-01-31 09:59] LABS: EOSINOPHILS % (AUTO) 0.8 % (0.0-3.0); HEMOGLOBIN 13.5 G/DL (12.0-16.0); LYMPHOCYTES % (AUTO) 31.8 % (20.0-45.0); MEAN CORPUSCULAR VOLUME 96 FL (80-99); MONOCYTES % (AUTO) 8.7 % (1.0-10.0); NEUTROPHILS % (AUTO) 56.6 % (45.0-75.0); PLATELET COUNT 311 K/UL (150-450); RED BLOOD COUNT 4.17 M/UL (4.20-5.40)
[2020-01-31 10:09] LABS: ANION GAP 11 mmol/L (5-15); BILIRUBIN, URINE NEGATIVE (NEGATIVE); BLOOD UREA NITROGEN 14 mg/dL (7-18); CALCIUM 9.3 MG/DL (8.5-10.1); CARBON DIOXIDE 22 MMOL/L (21-32); CHLORIDE 105 MMOL/L (98-107); CREATININE 0.9 MG/DL (0.55-1.30); GLUCOSE, URINE (UA) NEGATIVE (NEGATIVE); KETONES,URINE NEGATIVE (NEGATIVE); LEUKOCYTE ESTERASE ,URINE 3+ (NEGATIVE); NITRITE,URINE NEGATIVE (NEGATIVE); PH,URINE 6 (4.5-8.0); POTASSIUM 3.7 MMOL/L (3.5-5.1); PROTEIN,URINE 2+ (NEGATIVE); SODIUM 137 MMOL/L (136-145); UROBILINOGEN,URINE NORMAL MG/DL (0.0-1.0)
[2020-01-31 10:14] LABS: ALANINE AMINOTRANSFERASE 28 U/L (12-78); ALBUMIN 4.2 G/DL (3.4-5.0); ALKALINE PHOSPHATASE 62 U/L (46-116); ASPARTATE AMINO TRANSFERASE 25 U/L (15-37); BILIRUBIN,TOTAL 0.5 MG/DL (0.2-1.0)
[2020-01-31] MEDS ORDERED: DUONEB 0.5-3(2.53 ML HHN (10:16)
[2020-01-31] MEDS ORDERED: PREDNISONE20 MG ORAL (10:16)
[2020-01-31] MEDS ORDERED: VENTOLIN HFA18 GM INH (10:16)
[2020-01-31] MEDS ORDERED: QVAR7.3 GM INH (10:16)
[2020-01-31 10:21] LABS: APPEARANCE,URINE VERY CLOUDY; COLOR,URINE YELLOW
--- NOTE | 2020-01-31 10:42 | Diagnostic Imaging Report ---
Indication: Shortness of breath Technique: One view of the chest Comparison: 05/30/2019 Findings: Lungs and pleural spaces are clear. Heart size is normal. No significant change Impression: No acute process
[2020-01-31] MEDS ORDERED: cefTRIAXone 1 GM in NS 55 ML IVPB ONE (11:00)
[2020-01-31] MEDS: Albuterol/Ipratropium 3ml neb HHN SCH ×2 (11:00→11:01)
[2020-01-31] MEDS ORDERED: CEPHALEXIN500 MG ORAL (11:12)
[2020-01-31 11:25] VITALS: BP 110/73
--- NOTE | 2020-01-31 11:30 | NUR ---
ER DISCHARGE NOTE: Patient is cleared to be discharged per ERMD, pt is aox4, on room air, with stable vital signs. pt was given dc and prescription instructions, pt was able to verbalize understanding, pt id band and iv site removed without complications. pt is able to ambulate with steady gait. pt took all belongings.
[2020-01-31 11:31] VITALS: BP 110/73
== END 2020-01-31 11:35 | disposition home or self-care (01) ==
LOC: EMR 09:06
DX: J45.901 Unspecified asthma with (acute) exacerbation (principal); N39.0 Urinary tract infection, site not specified; Z88.0 Allergy status to penicillin; R00.0 Tachycardia, unspecified; R00.1 Bradycardia, unspecified
CPT/HCPCS: 36415; 71045; 80053; 81003; 81025; 84484; 85025; 87086; 93005; 94640; 96365; J0696; J7512; U0002; Z7502; 99284; J7620

== ENCOUNTER 2020-04-08 09:37 | Emergency (ER) | payer OTHER ==
[~2020-04-08] VITALS: Ht 160 cm; Wt 59.0 kg
[~2020-04-08 09:37] MED LIST changes: +CEPHALEXIN500 MG ORAL; +DUONEB 0.5-3(2.53 ML HHN; +IBUPROFEN600 M1 ORAL; +QVAR7.3 GM INH
--- NOTE | 2020-04-08 09:55 | NUR ---
ED Nurse Note: Pt ambulated to ed stating that she has been having sore throat, chills, headaches and runny nose for 2 days. pt appears flushed.
[2020-04-08 09:56] VITALS: BP 111/76
--- NOTE | 2020-04-08 09:58 | NUR ---
ED Nurse Note: XRAY at bedside
[2020-04-08] MEDS ORDERED: ALBUTEROL2.5 MG/3 M HHN (10:10)
[2020-04-08 10:22] VITALS: BP 122/79
--- NOTE | 2020-04-08 10:22 | NUR ---
ER DISCHARGE NOTE: Patient is cleared to be discharged per ERMD, pt is aox4, on room air, with stable vital signs. pt was given dc and prescription instructions, pt was able to verbalize understanding, pt id band removed. pt is able to ambulate with steady gait. pt took all belongings.
--- NOTE | 2020-04-08 11:21 | Emergency Room Report ---
History of Present Illness General Chief Complaint: Flu Like Symptoms Source: Patient Present Illness HPI 34-year-old female here with 2 days of sore throat and nasal congestion. Patient says that her symptoms have been gradually worsening. Has not taken any medication for her symptoms. Denies fevers, chills, chest pain, palpitations, cough, shortness of breath, back pain, abdominal pain, nausea, vomiting, diarrhea, dysuria. No relevant past medical or past surgical history. Allergies: Coded Allergies: AMOXICILLIN (Verified Allergy, Mild, Itching, 01/12/17) COVID-19 Screening Contact w/high risk pt: No Experienced COVID-19 symptoms?: Yes COVID-19 Testing performed EGG PRODUCER: No Patient History Last Menstrual Period: 03/21/20 Nursing Documentation-[facility] Past Medical History: No History, Except For Hx Asthma: Yes Review of Systems All Other Systems: negative except mentioned in HPI Physical Exam Vital Signs Date Time Temp Pulse Resp B/P (MAP) Pulse Ox O2 Delivery O2 Flow Rate FiO2 04/08/20 09:41 98.1 78 17 111/76 (88) 98 Room Air Sp02 EP Interpretation: reviewed, normal General Appearance: no apparent distress, alert, non-toxic Head: normocephalic, atraumatic Eyes: bilateral eye normal inspection, bilateral eye PERRL ENT: hearing grossly normal, normal pharynx, no angioedema, normal voice, other - Nasal congestion Neck: full range of motion, supple/symm/no masses Respiratory: chest non-tender, lungs clear, normal breath sounds, speaking full sentences Cardiovascular #1: regular rate, rhythm, no edema Cardiovascular #2: 2+ carotid (R), 2+ carotid (L), 2+ radial (R), 2+ radial (L), 2+ dorsalis pedis (R), 2+ dorsalis pedis (L) Gastrointestinal: normal bowel sounds, non tender, soft, non-distended, no guarding, no rebound Rectal: deferred Genitourinary: normal inspection, no CVA tenderness Musculoskeletal: back normal, normal range of motion, gait/station normal, non- tender Neurologic: alert, motor strength/tone normal, oriented x3, sensory intact, responsive, speech normal Psychiatric: judgement/insight normal, memory normal, mood/affect normal, no suicidal/homicidal ideation Lymphatic: no adenopathy Medical Decision Making Diagnostic Impression: Primary Impression: Influenza-like symptoms ER Course Chest x-ray: Indication cough. No infiltrate/effusion. Mediastinum within normal limits. No consolidations. No free air under the diaphragm. No bony abnormalities 34-year-old female here with nasal congestion and sore throat for 2 days. Patient was well-appearing and did not have any vital sign abnormalities. Normal oxygen saturation. Chest x-ray did not reveal any acute abnormalities. Patient was told to follow-up with her primary care physician or go to an outpatient testing center to be tested for COVID-19. No indication for testing her at this time in the emergency department given her well appearance. She was told to come back to the emergency department if she has any worsening shortness of breath. Expressed understanding and was discharged. Last Vital Signs Date Time Temp Pulse Resp B/P (MAP) Pulse Ox O2 Delivery O2 Flow Rate FiO2 04/08/20 10:22 98.3 82 19 122/79 100 Room Air Disposition: HOME, SELF-CARE Condition: Stable Scripts Albuterol Sulfate* (ALBUTEROL SULFATE HHN*) 2.5 Mg/3 Ml Vial.neb 2.5 MG HHN Q4H PRN for Shortness of Breath, #1 INH Prov: Everett Graff M.D. 04/08/20 Referrals: [facility] Patient Instructions: Viral Respiratory Infection, [id number] Additional Instructions: Please follow-up with your primary care doctor in the next 1 to 3 days to discuss this emergency department visit and for reevaluation. If you have any new or worsening symptoms please return to the emergency department for reevaluation. Everett Graff M.D. Apr 08, 2020 11:21
--- NOTE | 2020-04-08 14:59 | Diagnostic Imaging Report ---
Indication: Cough Technique: One view of the chest Comparison: 01/31/2020 Findings: Lungs and pleural spaces are clear. Heart size is normal. No significant change Impression: No acute process
== END 2020-04-08 10:20 | disposition home or self-care (01) ==
LOC: EMR 10:12
DX: R05 Cough (principal); R09.81 Nasal congestion; Z88.0 Allergy status to penicillin
CPT/HCPCS: 71045; Z7502; 99283

== ENCOUNTER 2020-04-12 14:12 | Emergency (ER) | payer OTHER ==
[~2020-04-12] VITALS: Ht 162.6 cm; Wt 59.0 kg
[~2020-04-12 14:12] MED LIST changes: +ALBUTEROL2.5 MG/3 M HHN
[2020-04-12 14:35] VITALS: BP 97/59
[2020-04-12 15:02] LABS: APPEARANCE,URINE SLIGHTLY CLOUDY; BILIRUBIN, URINE NEGATIVE (NEGATIVE); COLOR,URINE PALE YELLOW; GLUCOSE, URINE (UA) NEGATIVE (NEGATIVE); KETONES,URINE NEGATIVE (NEGATIVE); LEUKOCYTE ESTERASE ,URINE 3+ (NEGATIVE); NITRITE,URINE NEGATIVE (NEGATIVE); PH,URINE 9 (4.5-8.0); PROTEIN,URINE 3+ (NEGATIVE); UROBILINOGEN,URINE NORMAL MG/DL (0.0-1.0)
[2020-04-12] MEDS ORDERED: NITROFURANTOIN100 M2 ORAL (16:22)
[2020-04-12 16:37] VITALS: BP 100/62
--- NOTE | 2020-04-12 16:48 | Diagnostic Imaging Report ---
Indication: Cough Technique: One view of the chest Comparison: 04/08/2020 Findings: Lungs and pleural spaces are clear. Heart size is normal. Impression: No acute process
--- NOTE | 2020-04-12 19:27 | Emergency Room Report ---
History of Present Illness General Chief Complaint: Upper Respiratory Illness Source: Patient Present Illness HPI 34-year-old female presents for evaluation. States that her mother tested positive for Covid a few days ago. States she is worried about exposure. States that she has a cough. Dry. Denies shortness of breath. Denies fevers or chills. No other aggravating relieving factors. Denies any other associated symptoms Allergies: Coded Allergies: AMOXICILLIN (Verified Allergy, Mild, Itching, 01/12/17) COVID-19 Screening Contact w/high risk pt: No Experienced COVID-19 symptoms?: Yes COVID-19 Testing performed STORES LABORER: No Patient History Past Medical History: none Past Surgical History: none Pertinent Family History: none Social History: Denies: smoking, alcohol use, drug use Now: No Immunizations: UTD Reviewed Nursing Documentation: PMH: Agreed; PSxH: Agreed Nursing Documentation-PMH Hx Asthma: Yes Review of Systems All Other Systems: negative except mentioned in HPI Physical Exam Vital Signs Date Time Temp Pulse Resp B/P (MAP) Pulse Ox O2 Delivery O2 Flow Rate FiO2 04/12/20 14:29 99.1 86 17 97/59 (72) 96 Room Air Sp02 EP Interpretation: reviewed, normal General Appearance: no apparent distress, alert, GCS 15, non-toxic Head: normocephalic, atraumatic Eyes: bilateral eye normal inspection, bilateral eye PERRL ENT: hearing grossly normal, normal pharynx, no angioedema, normal voice Neck: full range of motion, supple/symm/no masses Respiratory: chest non-tender, lungs clear, normal breath sounds, speaking full sentences Cardiovascular #1: regular rate, rhythm, no edema Cardiovascular #2: 2+ carotid (R), 2+ carotid (L), 2+ radial (R), 2+ radial (L), 2+ dorsalis pedis (R), 2+ dorsalis pedis (L) Gastrointestinal: normal bowel sounds, non tender, soft, non-distended, no guarding, no rebound Rectal: deferred Genitourinary: normal inspection, no CVA tenderness Musculoskeletal: back normal, normal range of motion, gait/station normal, non- tender Neurologic: alert, motor strength/tone normal, oriented x3, sensory intact, responsive, speech normal Psychiatric: judgement/insight normal, memory normal, mood/affect normal, no suicidal/homicidal ideation Reflexes: 3+ bicep (R), 3+ bicep (L), 3+ tricep (R), 3+ tricep (L), 3+ knee (R), 3+ knee (L) Lymphatic: no adenopathy Medical Decision Making Diagnostic Impression: Primary Impression: UTI (lower urinary tract infection) Additional Impression: Upper respiratory symptom ER Course Hospital Course 34-year-old female presents with cough. Recent Covid exposure Differential diagnoses include: URI, pneumonia, Covid Clinical course Patient placed on stretcher. Isolation. I wore full PPE. After initial history, physical exam reveals a female in no acute distress. Bilateral TM unremarkable. No pharyngeal erythema. No tonsillar exudates. No lymphadenopathy. lungs clear. abdomen soft. Order chest x-ray, UA, Covid swab X-rayno focal consolidation or infiltrate Covid negative UA positive bacteria Findings with patient. Safe for discharge with close outpatient follow-up encourage continued self isolation as her mother has tested positive and she lives with her mother. Will prescribe antibiotics. I will provide referrals Diagnosis - URI, UTI Stable and discharged home prescription for Macrobid. Instructed to followup with PMD. Return to ED if symptoms recur or worsen Laboratory Tests Test 04/12/20 14:44 Urine Color Pale yellow Urine Appearance Slightly cloudy Urine pH 9 (4.5-8.0) Urine Specific [place] 1.015 (1.005-1.035) Urine Protein 3+ (NEGATIVE) H Urine Glucose (UA) Negative (NEGATIVE) Urine Ketones Negative (NEGATIVE) Urine Blood 5+ (NEGATIVE) H Urine Nitrite Negative (NEGATIVE) Urine Bilirubin Negative (NEGATIVE) Urine Urobilinogen Normal MG/DL (0.0-1.0) Urine Leukocyte Esterase 3+ (NEGATIVE) H Urine RBC 20-30 /HPF (0 - 2) H Urine WBC Tntc /HPF (0 - 2) H Urine Squamous Epithelial Cells Few /LPF (NONE/OCC) Urine Bacteria Moderate /HPF (NONE) H Urine HCG, Qualitative Negative (NEGATIVE) Chest X-Ray Diagnostic Results Chest X-Ray Diagnostic Results : Chest X-Ray Ordered: Yes # of Views/Limited/Complete: 1 View Indication: Other EP Interpretation: Yes Interpretation: no consolidation, no effusion, no pneumothorax, no acute cardiopulmonary disease Impression: No acute disease Electronically Signed by: Electronically signed by Enzo Bowen MD Last Vital Signs Date Time Temp Pulse Resp B/P (MAP) Pulse Ox O2 Delivery O2 Flow Rate FiO2 04/12/20 16:37 99.1 84 18 100/62 99 Room Air Status: improved Disposition: HOME, SELF-CARE Condition: Stable Scripts Nitrofurantoin Monohyd/M-Cryst* (MACROBID 100 MG*) 100 Mg Capsule 100 MG ORAL EVERY 12 HOURS, #14 CAP Prov: Enzo Bowen MD 04/12/20 Referrals: [facility] Patient Instructions: Dysuria, Upper Respiratory Infection, Adult Enzo Bowen MD Apr 12, 2020 19:27
== END 2020-04-12 16:37 | disposition home or self-care (01) ==
LOC: EMR 14:35
DX: J06.9 Acute upper respiratory infection, unspecified (principal); N39.0 Urinary tract infection, site not specified; Z88.1 Allergy status to other antibiotic agents
CPT/HCPCS: 71045; 81003; 81025; 87086; U0002; Z7502; 99284

== ENCOUNTER 2020-05-31 08:01 | Emergency (ER) | payer OTHER ==
[~2020-05-31] VITALS: Ht 154.9 cm; Wt 54.4 kg
[2020-05-31 08:23] VITALS: BP 112/72
[2020-05-31] MEDS ORDERED: Lidocaine 2% Visc 15ml soln ORAL ONE (09:30)
[2020-05-31] MEDS ORDERED: Albuterol/Ipratropium 3ml neb HHN ONE (09:45)
--- NOTE | 2020-05-31 10:27 | Emergency Room Report ---
History of Present Illness General Chief Complaint: Sore Throat Source: Patient Present Illness HPI Patient is a 34-year-old female who presents for increased sore throat as well as increased cough. Prior history of asthma. She normally takes albuterol inhaler. Had recently been put on antibiotics due to throat infection. Reports having persistent sore throat. Increased nonproductive cough with intermittent phlegm production. Denies any coronavirus exposure. Denies any fever. Allergies: Coded Allergies: AMOXICILLIN (Verified Allergy, Mild, Itching, 01/12/17) COVID-19 Screening Contact w/high risk pt: No Experienced COVID-19 symptoms?: Yes COVID-19 Testing performed MANAGER OF COMMUNITY RELATIONS: No Patient History Past Medical History: see triage record Now: No Reviewed Nursing Documentation: PMH: Agreed; PSxH: Agreed Nursing Documentation-PMH Hx Asthma: Yes Review of Systems All Other Systems: negative except mentioned in HPI Physical Exam Vital Signs Date Time Temp Pulse Resp B/P (MAP) Pulse Ox O2 Delivery O2 Flow Rate FiO2 05/31/20 08:05 98.4 68 18 108/75 (86) 98 Room Air Sp02 EP Interpretation: reviewed, normal General Appearance: normal inspection, well appearing, no apparent distress, alert, GCS 15, non-toxic Head: atraumatic ENT: normal ENT inspection, hearing grossly normal, normal voice Neck: normal inspection, full range of motion, supple, no bony tend Respiratory: normal inspection, no respiratory distress, no retraction, no wheezing Cardiovascular #1: regular rate, rhythm, no edema Gastrointestinal: normal inspection, normal bowel sounds, non tender, soft, no guarding, no hernia Genitourinary: no CVA tenderness Musculoskeletal: normal inspection, back normal, normal range of motion Neurologic: alert, responsive, speech normal, normal inspection Psychiatric: normal inspection, judgement/insight normal, mood/affect normal Skin: no rash Medical Decision Making Diagnostic Impression: Primary Impression: Pharyngitis Additional Impression: Asthma exacerbation ER Course patient presented for sore throat and shortness of breath. Viral respiratory infection, pharyngitis, coronavirus infection, asthma exacerbation, anxiety among others. Because of complexity of patient's case laboratory tests were ordered. Patient was tested for rapid coronavirus infection and breathing treatment was given. Patient has adequate Patient is noted to have improvement of symptoms. Chest x-ray 1 view interpreted by me showed normal cardiac size without evident infiltrate. Patient will be discharged home. She is advised to return if she had any worsening condition or other concerns patient given prescription for oral steroids as well as antibiotics. The patient is advised to follow up with primary care doctor in 1-2 days. Patient is advised to return if any worsening condition or if any changes in status that are concerning. This report is dictated with [employer] medical records secretary software which may oc casionally lead to discrepancies related to use of this software. Last Vital Signs Date Time Temp Pulse Resp B/P (MAP) Pulse Ox O2 Delivery O2 Flow Rate FiO2 05/31/20 08:23 98.4 82 17 112/72 98 Room Air Status: improved Disposition: HOME, SELF-CARE Condition: Stable Scripts Prednisone* (PREDNISONE*) 20 Mg Tablet 40 MG ORAL DAILY, #15 TAB Prov: Prasad Reza MD 05/31/20 Azithromycin* (ZITHROMAX*) 250 Mg Tablet 250 MG ORAL DAILY, #6 TAB 0 Refills Take two tables once daily for 1 day, then one tablet once daily for 4 days. Prov: Prasad Reza MD 05/31/20 Patient Instructions: Tonsillitis Prasad Reza MD May 31, 2020 10:27
[2020-05-31] MEDS ORDERED: PREDNISONE20 MG ORAL ×3 (10:29→11:51)
[2020-05-31] MEDS ORDERED: ZITHROMAX250 MG ORAL ×3 (10:29→11:51)
[2020-05-31 11:17] VITALS: BP 118/76
[2020-05-31 12:30] VITALS: BP 125/74
--- NOTE | 2020-05-31 15:20 | Diagnostic Imaging Report ---
Indication: Cough Technique: One view of the chest Comparison: 04/12/2020 Findings: Lungs and pleural spaces are clear. Heart size is normal. No significant change Impression: No acute process
== END 2020-05-31 12:33 | disposition home or self-care (01) ==
LOC: EMR 08:55
DX: J02.9 Acute pharyngitis, unspecified (principal); J45.901 Unspecified asthma with (acute) exacerbation; Z79.899 Other long term (current) drug therapy; Z88.1 Allergy status to other antibiotic agents
CPT/HCPCS: 71045; 81025; 94640; U0002; Z7502; 99284; J7620

== ENCOUNTER 2020-09-04 09:41 | Emergency (ER) | payer OTHER ==
[~2020-09-04] VITALS: Ht 162.6 cm; Wt 54.9 kg
[2020-09-04] MEDS ORDERED: ZITHROMAX250 MG ORAL (10:30)
[2020-09-04] MEDS ORDERED: ALBUTEROL SULF8.5 G1 INH (10:30)
[2020-09-04 10:37] VITALS: BP 93/55
--- NOTE | 2020-09-04 10:40 | Emergency Room Report ---
History of Present Illness General Chief Complaint: General Complaint Source: Patient Present Illness HPI Patient presents emergency department today complaint cough congestion weakness mucus production and fatigue that is been going on for last 3 to 4 days. Patient has a history of joselito Covid last year she states that her symptoms are similar. She denies any shortness of breath. Denies any nausea or vomiting at this time. No other complaints are noted patient is noted to be moderate. No other modifying factors. No other associated signs and symptoms. No other complaints were noted. Allergies: Coded Allergies: AMOXICILLIN (Verified Allergy, Mild, Itching, 01/12/17) COVID-19 Screening Contact w/high risk pt: No Recent Travel to affected area: No Experienced COVID-19 symptoms?: Yes COVID-19 Testing performed INSURANCE CLAIMS REPRESENTATIVE: No COVID-19 Screening: Negative COVID-19 COVID-19 Testing Source: May 2020 Patient History Past Medical History: asthma Past Surgical History: none Pertinent Family History: none Social History: Denies: smoking, alcohol use, drug use Reviewed Nursing Documentation: PMH: Agreed; PSxH: Agreed Nursing Documentation-PMH Past Medical History: No History, Except For Hx Asthma: Yes Review of Systems All Other Systems: negative except mentioned in HPI Physical Exam Vital Signs Date Time Temp Pulse Resp B/P (MAP) Pulse Ox O2 Delivery O2 Flow Rate FiO2 09/04/20 10:02 98.4 69 16 93/55 (68) 97 Room Air Sp02 EP Interpretation: reviewed, normal General Appearance: normal inspection, well appearing, no apparent distress, alert Head: atraumatic Eyes: bilateral eye normal inspection ENT: normal ENT inspection, hearing grossly normal, normal voice Neck: normal inspection, full range of motion, supple, no bony tend Respiratory: normal inspection, lungs clear, normal breath sounds, no respiratory distress, no retraction, no wheezing Cardiovascular #1: regular rate, rhythm, no edema Gastrointestinal: normal inspection, normal bowel sounds, non tender, soft, no guarding, no hernia Genitourinary: no CVA tenderness Musculoskeletal: normal inspection, back normal, normal range of motion Neurologic: alert, responsive, speech normal, normal inspection Psychiatric: normal inspection, judgement/insight normal, mood/affect normal Skin: no rash Medical Decision Making Diagnostic Impression: Primary Impression: Asthma exacerbation ER Course Patient present to the Emergency Department today complaining of cough and congestion. Differential considerations include pneumonia bronchitis, asthma, COPD just to name a few.Patient exam is fairly benign. I felt the symptoms are consistent with bronchitis. I felt the patient benefit from antibiotics. Patient was also given the inhaler.Patient is advised to follow up with primary doctor in 2-3 days and return the emergency room for any worsening symptoms and as needed. Last Vital Signs Date Time Temp Pulse Resp B/P (MAP) Pulse Ox O2 Delivery O2 Flow Rate FiO2 09/04/20 10:37 98.4 16 93/55 97 Room Air 09/04/20 10:02 69 Status: improved Disposition: HOME, SELF-CARE Condition: Stable Scripts Azithromycin* (ZITHROMAX*) 250 Mg Tablet 250 MG ORAL DAILY, #6 TAB 0 Refills Take two tables once daily for 1 day, then one tablet once daily for 4 days. Prov: Mark Simmons MD 09/04/20 Albuterol Sulfate* (Albuterol Sulfate Hfa*) 8.5 Gm Hfa.aer.ad 2 PUFF INH Q4H, #1 INH Prov: Mark Simmons MD 09/04/20 Referrals: [facility]ERR[facility] (PCP) Departure Forms: Return to Work Return to Work Date: Sep 18, 2020 Patient Instructions: Acute Bronchitis, [id number] Mark Simmons MD Sep 04, 2020 10:40
== END 2020-09-04 10:43 | disposition home or self-care (01) ==
LOC: EMR 10:33
DX: J45.901 Unspecified asthma with (acute) exacerbation (principal); Z88.1 Allergy status to other antibiotic agents
CPT/HCPCS: 99282